=== PATIENT | female | born 1970 | race Caucasian/White ===

== ENCOUNTER 2016-10-09 08:00 | Emergency (ER) | payer BC ==
[2016-10-09] MEDS ORDERED: OXYCODONE-ACETAMINOPHEN 5-325 MG TABLET PO ONE (09:33)
--- NOTE | 2016-10-09 10:08 | ER Document Report ---
HPI - HPI Patient complains to provider of: FELL INJURING LOWER BACK AND NECK Onset: This morning Onset/Duration: Sudden Quality of pain: Throbbing Severity: Severe Pain Level: 5 Context: Patient states she slipped off the last step this morning on her way to work as it was wet. She landed more on her buttocks, but complains of lower back and neck pain. She has a history of neck surgery in the past. Associated Symptoms: None Exacerbated by: Movement Relieved by: Denies Similar symptoms previously: Yes Recently seen / treated by doctor: No - ROS ROS below otherwise negative: Yes Systems Reviewed and Negative: Yes All other systems reviewed and negative - CONSTITUTIONAL Constitutional: DENIES: Fever - EENT EENT: DENIES: Congestion - NEURO Neurology: DENIES: Headache - CARDIOVASCULAR Cardiovascular: DENIES: Chest pain - RESPIRATORY Respiratory: DENIES: Trouble Breathing - GASTROINTESTINAL Gastrointestinal: DENIES: Abdominal Pain - URINARY Urinary: DENIES: Dysuria - REPRODUCTIVE Reproductive: DENIES: : - MUSCULOSKELETAL Musculoskeletal: REPORTS: Back Pain, Neck Pain - DERM Skin Color: Normal Skin Problems: None Past Medical History - General Information source: Patient - Social History Smoking Status: Current Every Day Smoker Chew tobacco use (# tins/day): No Frequency of alcohol use: None Drug Abuse: None Lives with: Family Family History: Reviewed & Not Pertinent Patient has suicidal ideation: No Patient has homicidal ideation: No - Past Medical History Cardiac Medical History: Reports: Hx Hypertension Renal/ Medical History: Denies: Hx Peritoneal Dialysis Psychiatric Medical History: Reports: Hx Depression Past Surgical History: Reports: Hx Cholecystectomy, Hx Hysterectomy, Hx Orthopedic Surgery - c-spine:plates & screws, Hx Tonsillectomy - Immunizations Immunizations up to date: Yes Hx Diphtheria, Pertussis, Tetanus Vaccination: Yes Vertical Provider Document - CONSTITUTIONAL Agree With Documented VS: Yes Exam Limitations: No Limitations General Appearance: WD/WN, Mild Distress - INFECTION CONTROL TRAVEL OUTSIDE OF THE [place] IN LAST 30 DAYS: No - HEENT HEENT: Atraumatic, Normocephalic, PERRLA - NECK Notes: Mild tenderness cervical spine. Very tender cervical and trapezius muscles bilaterally. Pain with range of motion of neck. - RESPIRATORY Respiratory: Breath Sounds Normal, No Respiratory Distress O2 Sat by Pulse Oximetry: 99 - CARDIOVASCULAR Cardiovascular: Regular Rate, Regular Rhythm - GI/ABDOMEN Gastrointestinal: Abdomen Soft - MUSCULOSKELETAL/EXTREMETIES Musculoskeletal/Extremeties: Eccymosis - Right inner forearm - NEURO Level of Consciousness: Awake, Alert, Appropriate - DERM Integumentary: Warm, Dry Notes: Bruising noted to enter right forearm. Area tender to touch. Course - Vital Signs Vital signs: Temp Pulse Resp BP Pulse Ox 97.5 F 105 H 18 131/101 H 99 10/09/16 08:06 10/09/16 08:06 10/09/16 08:06 10/09/16 08:06 10/09/16 08:06 Discharge - Discharge Clinical Impression: Cervical strain, acute Qualifiers: Encounter type: initial encounter Qualified Code(s): S16.1XXA - Strain of muscle, fascia and tendon at neck level, initial encounter Low back pain Qualifiers: Chronicity: acute Back pain laterality: bilateral Sciatica presence: without sciatica Qualified Code(s): M54.5 - Low back pain Contusion of right forearm, initial encounter Qualifiers: Encounter type: initial encounter Qualified Code(s): S50.11XA - Contusion of right forearm, initial encounter Fall with injury Qualifiers: Encounter type: initial encounter Qualified Code(s): W19.XXXA - Unspecified fall, initial encounter Condition: Good Disposition: HOME, SELF-CARE Additional Instructions: X-rays were negative today. Take meds as prescribed Ice or heat packs to sore muscles ice packs to right inner forearm for bruising Follow-up with your doctor if not better by Saturday Return as needed Prescriptions: Methocarbamol [Robaxin 750 mg Tablet] 750 mg PO ASDIR PRN #40 tablet PRN Reason: Oxycodone HCl/Acetaminophen [Percocet 5-325 mg Tablet] 1 - 2 tab PO ASDIR PRN # 15 tablet PRN Reason: For Pain Forms: Return to Work
[2016-10-09 11:24] VITALS: BP 133/75
== END 2016-10-09 10:58 | disposition home or self-care (01) ==
LOC: ER 08:00
DX: S16.1XXA Strain of muscle, fascia and tendon at neck level, initial encounter (principal); S50.11XA Contusion of right forearm, initial encounter; M54.2 Cervicalgia; M54.5 Low back pain; W10.9XXA Fall (on) (from) unspecified stairs and steps, initial encounter; Y93.89 Activity, other specified; F17.200 Nicotine dependence, unspecified, uncomplicated; Z98.890 Other specified postprocedural states
CPT/HCPCS: 72050; 72110; 99283

== ENCOUNTER 2017-03-09 23:35 | Emergency (ER) | payer BC ==
[2017-03-10] MEDS ORDERED: OXYCODONE-ACETAMINOPHEN 5-325 MG TABLET PO ONE (00:04)
[2017-03-10] MEDS ORDERED: ATENOLOL 50 MG TABLET PO ONE (00:04)
[2017-03-10] MEDS ORDERED: PENICILLIN V POTASSIUM 500 MG TABLET PO ONE (00:04)
--- NOTE | 2017-03-10 00:06 | ER Document Report ---
ED Oral Problem - General Chief Complaint: Toothache Stated Complaint: POSSIBLE ABSCESS Time Seen by Provider: 03/09/17 23:56 Notes: Patient is a 46-year-old female that comes emergency department for chief complaint of right upper back dental pain. She states that she was evaluated by a dentist, placed on clindamycin, she has a follow-up appointment scheduled, she states she was told that she has a root canal planned, she states that the pain has worsened and she cannot sleep tonight. She denies swelling of the face , difficulty swallowing, fever, neck pain. Patient states she cannot take the clindamycin because it "makes her throat feel like it is swelling up". Patient was noted to be tachycardic in the 120s-140s upon arrival, on the monitor she is tachycardic at 118 on my examination. She denies chest pain, shortness of breath, dizziness, she denies the sensation of a racing heart. Patient is supposed to be taking atenolol 25 mg daily for this but she states she forgot for the past day or so. TRAVEL OUTSIDE OF THE [place] IN LAST 30 DAYS: No - Related Data Allergies/Adverse Reactions: clonazepam [From Klonopin] Allergy (Verified 03/09/17 23:41) tetracycline [Tetracycline] Allergy (Verified 03/09/17 23:41) Past Medical History - General Information source: Patient - Social History Smoking Status: Never Smoker Frequency of alcohol use: None Lives with: Family Family History: Reviewed & Not Pertinent Patient has suicidal ideation: No Patient has homicidal ideation: No - Past Medical History Cardiac Medical History: Reports: Hx Hypertension Renal/ Medical History: Denies: Hx Peritoneal Dialysis Psychiatric Medical History: Reports: Hx Depression Past Surgical History: Reports: Hx Cholecystectomy, Hx Hysterectomy, Hx Orthopedic Surgery - c-spine:plates & screws, Hx Tonsillectomy - Immunizations Immunizations up to date: Yes Hx Diphtheria, Pertussis, Tetanus Vaccination: Yes Review of Systems - Review of Systems Constitutional: No symptoms reported EENT: See HPI Cardiovascular: No symptoms reported Respiratory: No symptoms reported Gastrointestinal: No symptoms reported Genitourinary: No symptoms reported Female Genitourinary: No symptoms reported Musculoskeletal: No symptoms reported Skin: No symptoms reported Hematologic/Lymphatic: No symptoms reported Neurological/Psychological: No symptoms reported Physical Exam - Vital signs Vitals: Temp Pulse Resp BP Pulse Ox 97.9 F 144 H 18 141/103 H 98 03/09/17 23:41 03/09/17 23:41 03/09/17 23:41 03/09/17 23:41 03/09/17 23:41 Interpretation: Normal - General General appearance: Appears well, Alert - HEENT Head: Normocephalic, Atraumatic Eyes: Normal Conjunctiva: Normal Extraocular movements intact: Yes Eyelashes: Normal Pupils: PERRL Ears: Normal Sinus: Normal Nasal: Normal Mouth/Lips: Normal Mucous membranes: Normal Teeth diagram: 1 - Dental fracture without surrounding erythema, swelling, or abscess Pharynx: Normal Neck: Normal - Respiratory Respiratory status: No respiratory distress Chest status: Nontender Breath sounds: Normal Chest palpation: Normal - Cardiovascular Rhythm: Regular, Tachycardia - Marked tachycardia. No: Irregularly irregular, Extrasystoles Heart sounds: Normal auscultation, S1 appreciated, S2 appreciated Murmur: No - Abdominal Inspection: Normal Distension: No distension Bowel sounds: Normal Tenderness: Nontender Organomegaly: No organomegaly - Back Back: Normal, Nontender - Extremities General upper extremity: Normal inspection, Nontender, Normal color, Normal ROM , Normal temperature General lower extremity: Normal inspection, Nontender, Normal color, Normal ROM , Normal temperature, Normal weight bearing. No: Patria's sign - Neurological Neuro grossly intact: Yes Cognition: Normal Orientation: AAOx4 Keith Coma Scale Eye Opening: Spontaneous Keith Coma Scale Verbal: Oriented Keith Coma Scale Motor: Obeys Commands Keith Coma Scale Total: 15 Speech: Normal Motor strength normal: LUE, RUE, LLE, RLE Sensory: Normal - Psychological Associated symptoms: Normal affect, Normal mood - Skin Skin Temperature: Warm Skin Moisture: Dry Skin Color: Normal Course - Re-evaluation Re-evalutation: Patient actually is well-appearing, she does not appear to be in any significant pain, she has a dental fracture but no signs of abscess and no facial swelling. No lymphadenopathy or fever. Patient is very tachycardic, however after given her atenolol the tachycardia resolved. Patient denying any chest pain, shortness of breath, dizziness, or any symptoms other than tooth pain during her entire stay. Recommended she take her atenolol regularly as prescribed, she states she now understands the importance of this. Providing with antibiotics, she already has good dental follow-up, discussed return precautions, patient states understanding and agreement. - Vital Signs Vital signs: Temp Pulse Resp BP Pulse Ox 97.9 F 144 H 19 131/100 H 95 03/09/17 23:41 03/09/17 23:41 03/10/17 01:31 03/10/17 01:31 03/10/17 01:31 Discharge - Discharge Clinical Impression: Tooth pain, Sinus tachycardia Condition: Stable Disposition: HOME, SELF-CARE Additional Instructions: Please take the penicillin instead of the clindamycin to completion. Take the pain medicine given tonight if needed. Take the atenolol your prescribed every night, if not your heart rate is abnormally elevated. Follow-up closely with your dentist for repair. Return to emergency department for any concerning symptoms including swelling of the face, fever, etc. Prescriptions: Penicillin V Potassium [Penicillin Vk 500 mg Tablet] 500 mg PO BID #20 tablet Referrals: HAWA GARCIA MD [Primary Care Provider] - Follow up as needed
[2017-03-10 01:54] VITALS: BP 131/100
[2017-03-10] MEDS ORDERED: HYDROCODONE/ACETAMINOPHEN 5-325 MG 6 TAB/DSPK PO PRN (01:59)
--- NOTE | 2017-03-10 08:32 | EKG REPORT ---
SEVERITY:- OTHERWISE NORMAL ECG - SINUS TACHYCARDIA : Confirmed by: Jerrell Ramirez MD 10-Mar-2017 08:30:56
== END 2017-03-10 01:31 | disposition home or self-care (01) ==
LOC: ER 23:35
DX: K08.89 Other specified disorders of teeth and supporting structures (principal); R00.0 Tachycardia, unspecified
CPT/HCPCS: 93005; 93010; 99283

== ENCOUNTER 2017-06-18 07:40 | Emergency (ER) | payer BC ==
[2017-06-18] MEDS ORDERED: ASPIRIN 81 MG TABLET, CHEWABLE PO ONE (07:48)
[2017-06-18 08:50] LABS: ABSOLUTE BASOPHILS # (AUTO) 0.1 10^3/uL (0.0-0.2); ABSOLUTE EOSINOPHILS # (AUTO) 0.3 10^3/uL (0.0-0.6); ABSOLUTE LYMPHOCYTES (AUTO) 2.8 10^3/uL (0.5-4.7); ABSOLUTE MONOCYTES (AUTO) 0.6 10^3/uL (0.1-1.4); EOSINOPHILS % (AUTO) 2.7 % (0-6); HEMATOCRIT 41.4 % (36.0-47.0); LYMPHOCYTES % (AUTO) 28.5 % (13-45); MEAN CORPUSCULAR HEMOGLOBIN 28.8 pg (27.0-33.4); MEAN CORPUSCULAR HGB CONC 33.9 g/dL (32.0-36.0); MEAN CORPUSCULAR VOLUME 85 fl (80-97); MONOCYTES % (AUTO) 6.1 % (3-13); PLATELET COUNT 319 10^3/uL (150-450); RED BLOOD COUNT 4.87 10^6/uL (3.72-5.28); SEGMENTED NEUTROPHILS % (AUTO) 61.7 % (42-78); TOTAL CELLS COUNTED % (AUTO) 100 %; WHITE BLOOD COUNT 9.7 10^3/uL (4.0-10.5)
--- NOTE | 2017-06-18 08:50 | RADIOLOGY REPORT (SQ) ---
EXAM DESCRIPTION: CHEST PA/LAT COMPLETED DATE/TIME: 06/18/2017 8:16 am REASON FOR STUDY: sob COMPARISON: 02/17/2016 EXAM PARAMETERS: NUMBER OF VIEWS: two views TECHNIQUE: Digital Frontal and Lateral radiographic views of the chest acquired. RADIATION DOSE: NA LIMITATIONS: none FINDINGS: LUNGS AND PLEURA: No opacities, masses or pneumothorax. No pleural effusion. MEDIASTINUM AND HILAR STRUCTURES: No masses or contour abnormalities. HEART AND VASCULAR STRUCTURES: Heart normal size. No evidence for failure. BONES: No acute findings. HARDWARE: None in the chest. OTHER: No other significant finding. IMPRESSION: NO SIGNIFICANT RADIOGRAPHIC FINDING IN THE CHEST. TECHNICAL DOCUMENTATION: JOB ID: [id number] [employer]- All Rights Reserved
[2017-06-18 08:59] LABS: PROTHROMBIN TIME 12.8 SEC (11.4-15.4)
[2017-06-18 09:02] LABS: D-DIMER 1.38 ug/mL (0.00-0.50)
[2017-06-18 09:06] LABS: APPEARANCE,URINE CLOUDY; BILIRUBIN,URINE NEGATIVE (NEGATIVE); COLOR,URINE YELLOW; GLUCOSE, URINE NEGATIVE (NEGATIVE); KETONES,URINE NEGATIVE (NEGATIVE); LEUKOCYTE ESTERASE,URINE MODERATE (NEGATIVE); NITRITE,URINE NEGATIVE (NEGATIVE); PROTEIN,URINE 30 mg/dL (NEGATIVE); URINE SPECIFIC GRAVITY 1.028
[2017-06-18 09:12] LABS: ALANINE AMINOTRANSFERASE 19 U/L (9-52); ALBUMIN 4.2 g/dL (3.5-5.0); ALKALINE PHOSPHATASE 87 U/L (38-126); ANION GAP 11 (5-19); ASPARTATE AMINO TRANSFERASE 18 U/L (14-36); BILIRUBIN,DIRECT 0.3 mg/dL (0.0-0.4); BILIRUBIN,TOTAL 0.5 mg/dL (0.2-1.3); BLOOD UREA NITROGEN 12 mg/dL (7-20); CALCIUM 9.5 mg/dL (8.4-10.2); CARBON DIOXIDE 27 mmol/L (22-30); CHLORIDE 103 mmol/L (98-107); CREATINE KINASE 37 U/L (30-135); GLUCOSE 95 mg/dL (75-110); POTASSIUM 4.1 mmol/L (3.6-5.0); SODIUM 141.2 mmol/L (137-145); TOTAL PROTEIN 6.9 g/dL (6.3-8.2)
[2017-06-18 09:20] LABS: URINE AMPHETAMINES SCREEN NEGATIVE; URINE BARBITURATES SCREEN NEGATIVE; URINE BENZODIAZEPINES SCREEN NEGATIVE; URINE COCAINE SCREEN NEGATIVE; URINE MARIJUANA (THC) SCREEN NEGATIVE; URINE METHADONE SCREEN NEGATIVE; URINE PHENCYCLIDINE SCREEN NEGATIVE
--- NOTE | 2017-06-18 09:32 | EKG REPORT ---
SEVERITY:- BORDERLINE ECG - SINUS TACHYCARDIA BORDERLINE INFERIOR Q WAVES : Confirmed by: Hermelinda Diaz 18-Jun-2017 09:31:51
[2017-06-18 09:40] LABS: CREATINE KINASE MB 0.33 ng/mL (<4.55); TROPONIN I < 0.012 ng/mL
[2017-06-18 09:45] LABS: FREE T4 (FREE THYROXINE) 1.19 ng/dL (0.78-2.19)
--- NOTE | 2017-06-18 10:47 | RADIOLOGY REPORT (SQ) ---
EXAM DESCRIPTION: CTA CHEST COMPLETED DATE/TIME: 06/18/2017 10:25 am REASON FOR STUDY: elevated d dimer tachy COMPARISON: None. TECHNIQUE: CT scan of the chest performed using helical scanning technique with dynamic intravenous contrast injection. Images reviewed with lung, soft tissue and bone windows. Reconstructed coronal and sagittal MPR images reviewed. Additional 3 dimensional post-processing performed to develop Maximal Intensity Projection images (NV P). All images stored on PACS. All CT scanners at this facility use dose modulation, iterative reconstruction, and/or weight based d osing when appropriate to reduce radiation dose to as low as reasonably achievable (ALARA). [facility]: Dose Right [facility]: CareDose [facility]: Dose Right [facility]: Teradose 4D [facility]: CoScale CONTRAST TYPE AND DOSE: contrast/concentration: Isovue 370.00 mg/ml; Total Contrast Delivered: 75.0 ml; Total Saline Delivered: 85.0 ml 75 mL Isovue 370 intravenously Contrast bolus optimized for the pulmonary arteries. Not diagnostic for the aorta. RENAL FUNCTION: Creatinine 0.80. HCG negative. RADIATION DOSE: CT Rad equipment meets quality standard of care and radiation dose reduction techniq ues were employed. CTDIvol: 13.2 - 21.4 mGy. DLP: 841 mGy-cm. . LIMITATIONS: None. FINDINGS: LUNGS AND PLEURA: No masses, infiltrates, pneumothorax. No pleural effusions, calcificati ons. AORTA AND GREAT VESSELS: No aneurysm. Contrast bolus not optimized for the aorta. HEART: No pericardial effusion. No significant coronary artery calcifications. PULMONARY ARTERIES: No emboli visualized in the main pulmonary arteries or the segmental branches. HILAR AND MEDIASTINAL STRUCTURES: No identified masses or abnormal nodes. HARDWARE: None in the chest. UPPER ABDOMEN: Prominent spleen at the margin of filming. Correlate clinically. THYROID AND OTHER SOFT TISSUES: No masses. No adenopathy. BONES: No acute or significant finding. 3D MIPS: Confirm above findings. OTHER: No other significant finding. IMPRESSION: NORMAL CTA OF THE CHEST. NO PULMONARY EMBOLI. COMMENT: Quality ID # [id number]: Final reports with documentation of one or more dose reduction techniques (e.g., Automated exposure control, adjustment of the mA and/or kV according to patient size, use of iterative reconstruction technique) TECHNICAL DOCUMENTATION: JOB ID: [id number]- All Rights Reserved
[2017-06-18] MEDS ORDERED: NORMAL SALINE 1000 ML 1,000 ML IV ONE (10:58)
--- NOTE | 2017-06-18 11:20 | ER Document Report ---
ED General - General Chief Complaint: Palpitations Stated Complaint: CHEST PAIN Time Seen by Provider: 06/18/17 07:48 TRAVEL OUTSIDE OF THE [place] IN LAST 30 DAYS: No - HPI Patient complains to provider of: Palpitations Notes: Patient coming in for evaluation palpitations that started earlier this morning approximately around 2 AM. Patient states has had increased stress in her living situation. Patient has a significant history for anxiety on Lexapro and Ativan going to the patient for the symptoms. Patient states history of tachycardia palpitations in the past with no diagnosis given. Patient denies any changes to her medications denies travel denies shortness of breath denies fevers chills nausea vomiting diarrhea. Patient is resting currently upon my evaluation. Patient states most of her symptoms are felt in the center of her chest. - Related Data Allergies/Adverse Reactions: clonazepam [From Klonopin] Allergy (Verified 03/09/17 23:41) tetracycline [Tetracycline] Allergy (Verified 03/09/17 23:41) Past Medical History - Social History Smoking Status: Current Every Day Smoker Chew tobacco use (# tins/day): No Frequency of alcohol use: None Drug Abuse: None Family History: Reviewed & Not Pertinent Patient has suicidal ideation: No Patient has homicidal ideation: No - Past Medical History Cardiac Medical History: Reports: Hx Hypertension Renal/ Medical History: Denies: Hx Peritoneal Dialysis Psychiatric Medical History: Reports: Hx Depression Past Surgical History: Reports: Hx Cholecystectomy, Hx Hysterectomy, Hx Orthopedic Surgery - c-spine:plates & screws, Hx Tonsillectomy - Immunizations Immunizations up to date: Yes Hx Diphtheria, Pertussis, Tetanus Vaccination: Yes Review of Systems - Review of Systems Constitutional: No symptoms reported EENT: No symptoms reported Cardiovascular: Chest pain, Palpitations Respiratory: No symptoms reported Gastrointestinal: No symptoms reported Genitourinary: No symptoms reported Female Genitourinary: No symptoms reported Musculoskeletal: No symptoms reported Skin: No symptoms reported Hematologic/Lymphatic: No symptoms reported Neurological/Psychological: No symptoms reported -: Yes All other systems reviewed and negative Physical Exam - Vital signs Vitals: Temp Pulse Resp BP Pulse Ox 97.9 F 110 H 18 146/103 H 100 06/18/17 07:43 06/18/17 07:43 06/18/17 07:43 06/18/17 07:43 06/18/17 07:43 Interpretation: Normal - General General appearance: Appears well, Alert - HEENT Head: Normocephalic, Atraumatic Eyes: Normal Pupils: PERRL - Respiratory Respiratory status: No respiratory distress Chest status: Nontender Breath sounds: Normal Chest palpation: Normal - Cardiovascular Rhythm: Regular Heart sounds: Normal auscultation Murmur: No - Abdominal Inspection: Normal Distension: No distension Bowel sounds: Normal Tenderness: Nontender Organomegaly: No organomegaly - Back Back: Normal, Nontender - Extremities General upper extremity: Normal inspection, Nontender, Normal color, Normal ROM , Normal temperature General lower extremity: Normal inspection, Nontender, Normal color, Normal ROM , Normal temperature, Normal weight bearing. No: Patria's sign - Neurological Neuro grossly intact: Yes Cognition: Normal Orientation: AAOx4 Keith Coma Scale Eye Opening: Spontaneous [place] Coma Scale Verbal: Oriented [place] Coma Scale Motor: Obeys Commands Keith Coma Scale Total: 15 Speech: Normal Motor strength normal: LUE, RUE, LLE, RLE Sensory: Normal - Psychological Associated symptoms: Normal affect, Normal mood - Skin Skin Temperature: Warm Skin Moisture: Dry Skin Color: Normal Course - Re-evaluation Re-evalutation: 06/18/17 11:17 The patient has atypical chest pain as the patient's chest pain is not suggestive of pulmonary embolus, cardiac ischemia, aortic dissection, or other serious etiology. Given the extremely low risk of these diagnoses further testing and evaluation for these possibilities does not appear to be indicated at this time. The patient has been instructed to return if the symptoms worsen or change in any way. Will recommend patient follow-up with cardiology for an event monitor. Also recommend patient follow-up with your psychiatric provider is that this may be stress or anxiety induced tachycardia. - Vital Signs Vital signs: Temp Pulse Resp BP Pulse Ox 97.9 F 110 H 18 146/103 H 98 06/18/17 07:43 06/18/17 07:43 06/18/17 07:43 06/18/17 07:43 06/18/17 08:34 - Laboratory Result Diagrams: 06/18/17 08:25 06/18/17 08:25 Laboratory results interpreted by me: 06/18/17 06/18/17 08:25 08:25 D-Dimer 1.38 H Urine Protein 30 H Urine Urobilinogen 2.0 H Ur Leukocyte Esterase MODERATE H Discharge - Discharge Clinical Impression: Palpitations Condition: Good Instructions: Anxiety ([facility]), Chest Pain of Unclear Cause ([facility]), Palpitations ( Irregular or Rapid Heartrate) ([facility]) Additional Instructions: Your laboratory studies today did not reveal any critical etiology for your symptoms this morning. I highly recommend following up with a instrumentation manager provided for further evaluation for cardiac cause of your symptoms. Also recommend following up with her primary care physician and her psychiatrist. Continue your home medications as prescribed. Please drink plenty water to stay hydrated. Return to the ER symptoms worsen. Forms: Return to Work Referrals: HAWA GARCIA MD [Primary Care Provider] - Follow up as needed KATELYN JETER MD [ACTIVE STAFF] - Follow up as needed
[2017-06-18 12:13] VITALS: BP 134/98
== END 2017-06-18 12:23 | disposition home or self-care (01) ==
LOC: ER 07:40
DX: R00.2 Palpitations (principal); R07.89 Other chest pain; F17.200 Nicotine dependence, unspecified, uncomplicated; I10 Essential (primary) hypertension; Z90.49 Acquired absence of other specified parts of digestive tract; Z90.710 Acquired absence of both cervix and uterus
CPT/HCPCS: 93005; 99285; 96360; 36415; 84439; 82553; 82550; 84443; 84703; 85025; 85610; 80053; 81001; 84484; 80307; 85379; 71046; 71275; 93010; J7030

== ENCOUNTER 2018-03-24 04:46 | Emergency (ER) | payer BC ==
[2018-03-24] MEDS ORDERED: MORPHINE SULFATE 10 MG/ML INJ IM ONE (06:43)
[2018-03-24] MEDS ORDERED: IBUPROFEN 400 MG TABLET PO ONE (06:45)
--- NOTE | 2018-03-24 06:47 | ER Document Report ---
ED General - General Chief Complaint: Arm Problem Stated Complaint: ARM PAIN BOTH ARMS Time Seen by Provider: 03/24/18 06:22 TRAVEL OUTSIDE OF THE [place] IN LAST 30 DAYS: No - HPI Patient complains to provider of: Arm pain Onset: Other - 47-year-old female with a history of chronic musculoskeletal pain as well as restless leg anxiety and depression that presents for evaluation of bilateral forearm pain as well as right shoulder pain in the setting of having done heavy lifting for the last 4 days with some occasional paresthesias in the hands bilaterally. Denies any trauma, falls, lightheadedness, diaphoresis, fevers, chills IV drug abuse, urinary retention, focal numbness or weakness in the lower extremities. - Related Data Allergies/Adverse Reactions: clonazepam [From Klonopin] Allergy (Verified 03/09/17 23:41) tetracycline [Tetracycline] Allergy (Verified 03/09/17 23:41) Past Medical History - General Information source: Patient, Parent - Social History Smoking Status: Current Every Day Smoker Family History: Reviewed & Not Pertinent Patient has suicidal ideation: No Patient has homicidal ideation: No - Past Medical History Cardiac Medical History: Reports: Hx Hypertension Renal/ Medical History: Denies: Hx Peritoneal Dialysis Psychiatric Medical History: Reports: Hx Depression Past Surgical History: Reports: Hx Cholecystectomy, Hx Hysterectomy, Hx Orthopedic Surgery - c-spine:plates & screws, Hx Tonsillectomy - Immunizations Immunizations up to date: Yes Hx Diphtheria, Pertussis, Tetanus Vaccination: Yes Review of Systems - Review of Systems -: Yes All other systems reviewed and negative Physical Exam - Vital signs Vitals: Temp Pulse Resp BP Pulse Ox 98.6 F 80 15 133/85 H 97 03/24/18 04:57 03/24/18 04:57 03/24/18 04:57 03/24/18 04:57 03/24/18 04:57 - General General appearance: Appears well In distress: None - HEENT Head: Normocephalic Eyes: Normal Conjunctiva: Normal Cornea: Normal Extraocular movements intact: Yes Eyelashes: Normal Pupils: PERRL - Respiratory Respiratory status: No respiratory distress Chest status: Nontender Breath sounds: Normal Chest palpation: Normal - Cardiovascular Rhythm: Regular Heart sounds: Normal auscultation Murmur: No Friction rub: No Kisha's crunch: No - Abdominal Inspection: Normal Distension: No distension Tenderness: Nontender Organomegaly: No organomegaly - Back Back: Normal - Extremities General upper extremity: Normal inspection, Normal ROM, Normal strength, Other - Tenderness to palpation along the volar and dorsal aspect of the forearm, intact range of motion at the shoulder, intact range of motion at the elbow, intact range of motion at the wrist Strong palpable radial pulse bilaterally Brisk capillary refill in all 5 digits bilaterally Normal sensation in the ulnar median and radial distribution Negative Tinel sign General lower extremity: Normal inspection, Nontender, Normal ROM, Normal strength Course - Re-evaluation Re-evalutation: 03/24/18 08:15 This 47-year-old female presents for symptoms consistent with likely underlying musculoskeletal arm pain in the setting of having done heavy lifting and moving over the last few days. She does endorse some paresthesias however in the hand which sound like potentially episodes of carpal tunnel syndrome as a result of her heavy lifting. She does however have intact strength in the bilateral uppers, 5 out of 5 in the flexors and extensors. She has no midline tenderness in the cervical thoracic or lumbar spine She has no diminished reflexes, no urinary retention no inability to ambulate no change in sensation in the uppers or lowers suggestive of a compressive cord lesion. We will attempt analgesia with IM morphine in the emergency department as well as a prescription for tizanidine a muscle relaxer at home and the use of NSAIDs as directed. - Vital Signs Vital signs: Temp Pulse Resp BP Pulse Ox 98.8 F 74 18 131/84 H 95 03/24/18 06:54 03/24/18 06:54 03/24/18 06:54 03/24/18 06:54 03/24/18 06:54 Discharge - Discharge Clinical Impression: Muscle pain Arm pain, musculoskeletal Qualifiers: Laterality: unspecified laterality Qualified Code(s): M79.603 - Pain in arm, unspecified Condition: Good Disposition: HOME, SELF-CARE Instructions: Carpal Tunnel Syndrome ([facility]), Myalagia (Muscle Pain) ([facility]) Additional Instructions: Your seen today in the emergency department for your muscle pain. It is possible that you do have some element of carpal tunnel as well. You should use ibuprofen 400 mg every 6-8 hours for the next 3 days. You should walk at least 30 minutes/day. You should avoid recurrent lifting, fine movements with your hands like knitting or typing for a few days. Follow-up with the orthopedist provided to you, keep your previous appointment with your neurologist. Use the medication prescribed you only as directed. Prescriptions: Tizanidine HCl 4 mg PO Q12H PRN #10 tablet PRN Reason: Muscle Spasms Forms: Elevated Blood Pressure, Return to Work Referrals: WILFREDO LOUISE MD [ACTIVE STAFF] - Follow up as needed
--- NOTE | 2018-03-24 06:49 | EKG REPORT ---
SEVERITY:- NORMAL ECG - SINUS RHYTHM : Confirmed by: Hermelinda Diaz 24-Mar-2018 06:49:05
[2018-03-24 06:54] VITALS: BP 131/84
== END 2018-03-24 06:56 | disposition home or self-care (01) ==
LOC: ER 04:46
DX: M79.18 Myalgia, other site (principal); M25.511 Pain in right shoulder; R20.2 Paresthesia of skin; X50.0XXA Overexertion from strenuous movement or load, initial encounter; Z88.8 Allergy status to other drugs, medicaments and biological substances; Z88.1 Allergy status to other antibiotic agents; F17.200 Nicotine dependence, unspecified, uncomplicated; I10 Essential (primary) hypertension
CPT/HCPCS: 93005; 99283; 96372; 93010; J3490; J2270

== ENCOUNTER 2019-05-01 16:50 | Observation (INO) | payer BC, MEDICAID ==
[2019-05-01] MEDS ORDERED: KETOROLAC TROMETHAMINE INJ/PF 30 MG/1 ML SDV IM ONE (18:01)
--- NOTE | 2019-05-01 18:04 | ER Document Report ---
ED Medical Screen (RME) - General Chief Complaint: Chest Pain Stated Complaint: CHEST PAIN, LEFT ARM PAIN Time Seen by Provider: 05/01/19 17:54 Primary Care Provider: MALACHI PEREZ MD [Primary Care Provider] - Follow up as needed Notes: Patient is a 49-year-old female who presents to the emergency department with a chief complaint of chest pain. Patient reports for about a week and a half she has had left chest wall pain mainly the left breast. Patient reports she is on atenolol for rapid heartbeat and has been for years. Patient reports the pain to the left chest is worse with walking, movement and bending over. Patient reports she did smoke 1 pack/day for the past 25 years but quit last week because she was scared to the chest pain. Patient denies fever, cough. Patient reports initially she thought this was acid reflux and did take some baking soda without relief. TRAVEL OUTSIDE OF THE [place] IN LAST 30 DAYS: No - Related Data Allergies/Adverse Reactions: clonazepam [From Klonopin] Allergy (Verified 05/01/19 17:54) tetracycline [Tetracycline] Allergy (Verified 05/01/19 17:54) Home Medications: atenolol Past Medical History - Social History Chew tobacco use (# tins/day): No Frequency of alcohol use: None Drug Abuse: None - Past Medical History Cardiac Medical History: Reports: Hx Hypertension Renal/ Medical History: Denies: Hx Peritoneal Dialysis Psychiatric Medical History: Reports: Hx Depression Past Surgical History: Reports: Hx Cholecystectomy, Hx Hysterectomy, Hx Orthopedic Surgery - c-spine:plates & screws, Hx Tonsillectomy - Immunizations Immunizations up to date: Yes Hx Diphtheria, Pertussis, Tetanus Vaccination: Yes Physical Exam - Vital signs Vitals: Temp Pulse Resp BP Pulse Ox 98.4 F 81 18 133/84 H 99 05/01/19 17:00 05/01/19 17:00 05/01/19 17:00 05/01/19 17:00 05/01/19 17:00 Course - Re-evaluation Re-evalutation: 05/01/19 18:04 I have greeted and performed a rapid initial assessment of this patient. A comprehensive ED assessment and evaluation of the patient, analysis of test results and completion of the medical decision making process will be conducted by additional ED providers. - Vital Signs Vital signs: Temp Pulse Resp BP Pulse Ox 98.4 F 81 18 133/84 H 99 05/01/19 17:00 05/01/19 17:00 05/01/19 17:00 05/01/19 17:00 05/01/19 17:00 Doctor's Discharge - Discharge Referrals: MALACHI PEREZ MD [Primary Care Provider] - Follow up as needed
[2019-05-01 18:49] LABS: ABSOLUTE BASOPHILS # (AUTO) 0.1 10^3/uL (0.0-0.2); ABSOLUTE EOSINOPHILS # (AUTO) 0.2 10^3/uL (0.0-0.6); ABSOLUTE LYMPHOCYTES (AUTO) 3.9 10^3/uL (0.5-4.7); ABSOLUTE NEUT (AUTO) 7.1 10^3/uL (1.7-8.2); BASOPHILS % (AUTO) 0.8 % (0-2); EOSINOPHILS % (AUTO) 1.7 % (0-6); HEMATOCRIT 39.7 % (36.0-47.0); HEMOGLOBIN 13.9 g/dL (12.0-15.5); LYMPHOCYTES % (AUTO) 31.5 % (13-45); MEAN CORPUSCULAR VOLUME 86 fl (80-97); PLATELET COUNT 347 10^3/uL (150-450); RED BLOOD COUNT 4.63 10^6/uL (3.72-5.28); RED CELL DISTRIBUTION WIDTH 13.8 % (11.5-14.0); TOTAL CELLS COUNTED % (AUTO) 100 %; WHITE BLOOD COUNT 12.2 10^3/uL (4.0-10.5)
--- NOTE | 2019-05-01 18:59 | RADIOLOGY REPORT (SQ) ---
EXAM DESCRIPTION: CHEST 2 VIEWS COMPLETED DATE/TIME: 05/01/2019 6:41 pm REASON FOR STUDY: chest pain COMPARISON: CT angio chest 06/18/2017 Two-view chest 06/18/2017 EXAM PARAMETERS: NUMBER OF VIEWS: two views TECHNIQUE: Digital Frontal and Lateral radiographic views of the chest acquired. RADIATION DOSE: NA LIMITATIONS: none FINDINGS: LUNGS AND PLEURA: No opacities, masses or pneumothorax. No pleural effusion. MEDIASTINUM AND HILAR STRUCTURES: No masses or contour abnormalities. HEART AND VASCULAR STRUCTURES: Heart normal size. No evidence for failure. BONES: No acute findings. HARDWARE: None in the chest. OTHER: No other significant finding. IMPRESSION: NO ACUTE RADIOGRAPHIC FINDING IN THE CHEST. TECHNICAL DOCUMENTATION: JOB ID: [id number] [employer]- All Rights Reserved Reading location - IP/workstation name: [email or web address]
[2019-05-01 19:12] LABS: ALBUMIN 4.2 g/dL (3.5-5.0); ALKALINE PHOSPHATASE 79 U/L (38-126); ANION GAP 11 (5-19); ASPARTATE AMINO TRANSFERASE 16 U/L (14-36); BILIRUBIN,DIRECT 0.1 mg/dL (0.0-0.4); BILIRUBIN,TOTAL 0.4 mg/dL (0.2-1.3); BLOOD UREA NITROGEN 12 mg/dL (7-20); CALCIUM 9.5 mg/dL (8.4-10.2); CARBON DIOXIDE 26 mmol/L (22-30); CHLORIDE 102 mmol/L (98-107); GLUCOSE 86 mg/dL (75-110); POTASSIUM 4.3 mmol/L (3.6-5.0); TOTAL PROTEIN 7.1 g/dL (6.3-8.2)
[2019-05-01] MEDS ORDERED: KETOROLAC TROMETHAMINE INJ/PF 30 MG/1 ML SDV ONE (20:43)
[2019-05-01] MEDS ORDERED: ASPIRIN 81 MG TABLET, CHEWABLE PO ONE (20:44)
[2019-05-01] MEDS ORDERED: NITROGLYCERIN 0.4 MG/TAB 25 TAB/BOTTLE SL ONE (20:45)
--- NOTE | 2019-05-01 20:51 | ER Document Report ---
ED General - General Chief Complaint: Chest Pain Stated Complaint: CHEST PAIN, LEFT ARM PAIN Time Seen by Provider: 05/01/19 17:54 Primary Care Provider: MALACHI PEREZ MD [Primary Care Provider] - Follow up as needed TRAVEL OUTSIDE OF THE [place] IN LAST 30 DAYS: No - HPI Notes: Patient is a 49-year-old female who presents emergency department for evaluation of chest pain. She states that over the last week and a half she is been having intermittent chest tightness. She points to her left upper chest. She states she has associated left arm heaviness. This pain is predictably brought about by any sort of exertion. She states if she rests and takes deep breaths the pain goes away. It lasts anywhere from 5 to 15 minutes. Prior to that she never had pain similar to this. She denies any associated shortness of breath, nausea, diaphoresis, near syncope. At first he thought it could be acid reflux, tried treatment for this without any significant relief. She currently states she has pain in her chest that she rates a 3 out of 10. It only started a few minutes before we started talking. - Related Data Allergies/Adverse Reactions: clonazepam [From Klonopin] Allergy (Verified 05/01/19 17:54) tetracycline [Tetracycline] Allergy (Verified 05/01/19 17:54) Home Medications: atenolol, Ativan Past Medical History - General Information source: Patient - Social History Smoking Status: Former Smoker - Quit smoking on 04/24/2019 Chew tobacco use (# tins/day): No Frequency of alcohol use: None Drug Abuse: None Family History: Reviewed & Not Pertinent Patient has suicidal ideation: No Patient has homicidal ideation: No - Past Medical History Cardiac Medical History: Reports: Hx Hypertension, Other - Palpitations Renal/ Medical History: Denies: Hx Peritoneal Dialysis Psychiatric Medical History: Reports: Hx Anxiety, Hx Depression Past Surgical History: Reports: Hx Cholecystectomy, Hx Hysterectomy, Hx Orthopedic Surgery - c-spine:plates & screws, Hx Tonsillectomy - Immunizations Immunizations up to date: Yes Hx Diphtheria, Pertussis, Tetanus Vaccination: Yes Review of Systems - Review of Systems Constitutional: No symptoms reported EENT: No symptoms reported Cardiovascular: See HPI Respiratory: No symptoms reported Gastrointestinal: No symptoms reported Genitourinary: No symptoms reported Musculoskeletal: No symptoms reported Skin: No symptoms reported Neurological/Psychological: No symptoms reported Physical Exam - Vital signs Vitals: Temp Pulse Resp BP Pulse Ox 98.4 F 81 18 133/84 H 99 05/01/19 17:00 05/01/19 17:00 05/01/19 17:00 05/01/19 17:00 05/01/19 17:00 - Notes Notes: Vital signs reviewed, please refer to chart. Head is normocephalic, atraumatic. Pupils equal round, reactive to light. Neck is supple without meningismus. Heart is regular rate and rhythm. Lungs are clear to auscultation bilaterally. Abdomen is soft, nontender, normoactive bowel sounds throughout. Extremities without cyanosis, clubbing. Posterior calves are nontender. Peripheral pulses are equal. Skin is warm and dry. Patient is awake, alert, neurological exam is nonfocal. Course - Re-evaluation Re-evalutation: 05/01/19 20:51 Patient presents the emergency department for evaluation. She was initially seen through triage and had laboratory investigations ordered. Upon signing into the chart, it was noted that the patient's troponin was indeterminately elevated. I immediately went in to see the patient. I am concerned that her chest pain does not fact sound anginal in nature. She was given aspirin, sublingual nitroglycerin. Her EKG failed to reveal any acute ST elevation. As she is having chest pain at this time, repeat EKG is ordered. Repeat troponin is ordered. She is placed on a monitor, we will continue to monitor. 05/01/19 21:57 Patient was given 1 sublingual nitroglycerin and her pain went from a 3 out of 10-0. She stayed there. Nitroglycerin paste was placed. She tolerated the aspirin well. Patient is already on a beta-giana. Currently her vitals are within normal limits. Will contact internal medicine for admission. 05/01/19 22:[address] Alvarado. He asked that I make the patient know that there are no beds available in the hospital, and she will likely be in the emergency department, and awaiting stress testing for a few days. I did notify the patient of this, she was still amenable to staying in the hospital. Patient was administered Ambien as per her request, as well as Lovenox at 1 mg/kg. We will admit the patient for further care. - Vital Signs Vital signs: Temp Pulse Resp BP Pulse Ox 98.4 F 81 15 111/78 98 05/01/19 17:00 05/01/19 17:00 05/01/19 22:01 05/01/19 22:01 05/01/19 22:01 - Laboratory Result Diagrams: 05/01/19 18:25 05/01/19 18:25 Laboratory results interpreted by me: 05/01/19 18:25 WBC 12.2 H - Diagnostic Test Radiology reviewed: Reports reviewed Radiology results interpreted by me: 05/01/19 22:38 Chest X-Ray 05/01/19 18:01 IMPRESSION: NO ACUTE RADIOGRAPHIC FINDING IN THE CHEST. - EKG Interpretation by Me Additional EKG results interpreted by me: 05/01/19 22:39 Initial EKG revealed a sinus rhythm with a rate of 78 bpm. Normal axis and intervals. No acute ST changes concerning for acute infarction. Repeat EKG showed a rate of 70 and no significant changes. Discharge - Discharge Clinical Impression: Unstable angina Condition: Stable Disposition: ADMITTED INPATIENT Admitting Provider: Christiano (Hospitalist) Unit Admitted: Telemetry Referrals: MALACHI PEREZ MD [Primary Care Provider] - Follow up as needed
[2019-05-01] MEDS ORDERED: ACETAMINOPHEN 325 MG TABLET PO ONE (21:49)
[2019-05-01] MEDS ORDERED: NITROGLYCERIN 2% OINTMENT 1 GM PACKET TP ONE (21:56)
--- NOTE | 2019-05-01 22:33 | PDOC H&P ---
History of Present Illness Admission Date/PCP: 05/01/2019 22:32 MALACHI PREEZ MD Patient complains of: Chest pain History of Present Illness: CEDRICK ANDINO is a 49 year old female who presented to the emergency room with a 10-day history of chest pain. Patient admits having intermittent 5 to 15-minute episodes of moderate to severe chest heaviness/tightness in the substernal and left upper chest with radiation of a heaviness sensation down her left arm. The episodes occur on exertion and are relieved by rest. The episodes have been increasing in frequency and in the intensity since their onset about 10 days ago. She denies other associated or accompanying signs and symptoms. She thought that her symptoms may be due to esophageal reflux and check an antiacid preparation of baking soda without improvement thus prompting her emergency room visit. She denies previous similar episodes. She has not identified any additional aggravating or ameliorating factors for her chest pain. In the emergency room she was found to have indeterminate cardiac enzyme assays and an EKG that showed no evidence of acute myocardial ischemia or injury. She was subsequently admitted to the hospital for further evaluation and treatment on an outpatient bed assignment basis. Past Medical History Cardiac Medical History: Reports: Hypertension, Other - Palpitations Denies: Atrial Fibrillation, Congestive Heart Failure, Coronary Artery Disease, DVT, Myocardial Infarction, Hyperlipidema, Pulmonary Embolism Pulmonary Medical History: Denies: Asthma, Chronic Obstructive Pulmonary Disease (COPD) EENT Medical History: Denies: Cataracts, Ears - Hearing aids Neurological Medical History: Denies: Hemorrhagic CVA, Ischemic CVA, Seizures Endocrine Medical History: Reports: Obesity Denies: Diabetes Mellitus Type 1, Diabetes Mellitus Type 2, Hyperthyroidism, Hypothyroidism Renal/ Medical History: Denies: Chronic Kidney Disease, Nephrolithiasis Malignancy Medical History: Reports: None GI Medical History: Denies: Cirrhosis, Hepatitis Musculoskeltal Medical History: Denies: Arthritis, Gout Skin Medical History: Denies: Eczema, Psoriasis Psychiatric Medical History: Reports: Depression, Tobacco Dependency Denies: Alcohol Dependency, Substance Abuse Traumatic Medical History: Reports: None Hematology: Denies: Anemia, Bleeding Tendencies Infectious Medical History: Reports: None Past Surgical History Past Surgical History: Reports: Cholecystectomy, Hysterectomy, Orthopedic Surgery - c-spine:plates & screws, Tonsillectomy Social History Information Source: Patient Lives with: Family Smoking Status: Former Smoker - Quit smoking on 04/24/2019 Electronic Cigarette use?: No Frequency of Alcohol Use: None Hx Recreational Drug Use: No Drugs: None Hx Prescription Drug Abuse: No - Advance Directive Resuscitation Status: Full Code Surrogate healthcare decision maker:: Dread Andino Family History Family History: CAD, Hypertension. denies: DM, Malignancy Parental Family History Reviewed: Yes Children Family History Reviewed: No Sibling(s) Family History Reviewed.: Yes Medication/Allergy Home Medications: Tizanidine HCl 4 mg PO Q12H PRN #10 tablet 03/24/18 Allergies/Adverse Reactions: clonazepam [From Klonopin] Allergy (Verified 05/01/19 17:54) tetracycline [Tetracycline] Allergy (Verified 05/01/19 17:54) Review of Systems Constitutional: ABSENT: chills, fever(s) Eyes: ABSENT: visual disturbances, other - Eye pain Ears: ABSENT: hearing changes, other - Ear pain Nose, Mouth, and Throat: ABSENT: mouth pain, sore throat Cardiovascular: PRESENT: as per HPI, chest pain. ABSENT: dyspnea on exertion, edema, orthropnea, palpitations Respiratory: ABSENT: cough, dyspnea Gastrointestinal: ABSENT: abdominal pain, constipation, diarrhea, nausea, vomiting Genitourinary: ABSENT: dysuria, hematuria Musculoskeletal: ABSENT: back pain, joint swelling, muscle weakness Integumentary: ABSENT: pruritus, rash Neurological: ABSENT: confusion, convulsions, focal weakness, memory loss, syncope Psychiatric: ABSENT: anxiety, depression Endocrine: ABSENT: cold intolerance, heat intolerance Hematologic/Lymphatic: ABSENT: easy bleeding, easy bruising Allergic/Immunologic: ABSENT: seasonal rhinorrhea Physical Exam Vital Signs: Temp Pulse Resp BP Pulse Ox 98.4 F 81 15 111/78 98 05/01/19 17:00 05/01/19 17:00 05/01/19 22:01 05/01/19 22:01 05/01/19 22:01 Intake & Output 04/29/19 04/30/19 05/01/19 23:59 23:59 23:59 Weight 90.718 kg General appearance: PRESENT: no acute distress, cooperative, obese Head exam: PRESENT: atraumatic, normocephalic Eye exam: PRESENT: conjunctiva pink. ABSENT: conjunctival injection, scleral icterus Ear exam: PRESENT: normal external ear exam. ABSENT: bleeding, drainage Mouth exam: PRESENT: dry mucosa, neck supple Neck exam: ABSENT: thyromegaly, tracheal deviation Respiratory exam: PRESENT: clear to auscultation kristy, symmetrical, unlabored Cardiovascular exam: PRESENT: RRR. ABSENT: clicks, gallop, rubs Pulses: PRESENT: normal radial pulses, normal dorsalis pedis pul Vascular exam: PRESENT: normal capillary refill. ABSENT: pallor GI/Abdominal exam: PRESENT: normal bowel sounds, soft Rectal exam: PRESENT: deferred Extremities exam: ABSENT: joint swelling, pedal edema Musculoskeletal exam: ABSENT: deformity, dislocation Neurological exam: PRESENT: alert, oriented to person, oriented to place, oriented to time, oriented to situation, CN II-XII grossly intact, motor sensory deficit Psychiatric exam: PRESENT: appropriate affect, normal mood Skin exam: PRESENT: dry, intact, warm. ABSENT: jaundice, rash, urticaria Results Laboratory Results: 05/01/19 18:25 05/01/19 18:25 05/01/19 05/01/19 18:25 18:25 WBC 12.2 H RBC 4.63 Hgb 13.9 Hct 39.7 MCV 86 MCH 30.0 MCHC 35.0 RDW 13.8 Plt Count 347 Seg Neutrophils % 58.0 Sodium 138.6 Potassium 4.3 Chloride 102 Carbon Dioxide 26 Anion Gap 11 BUN 12 Creatinine 0.73 Est GFR ( Amer) > 60 Glucose 86 Calcium 9.5 Total Bilirubin 0.4 AST 16 Alkaline Phosphatase 79 Total Protein 7.1 Albumin 4.2 05/01/19 05/01/19 18:25 20:55 Troponin I 0.095 0.111 Impressions: Chest X-Ray 05/01/19 18:01 IMPRESSION: NO ACUTE RADIOGRAPHIC FINDING IN THE CHEST. Assessment and Plan - Diagnosis (1) Chest pain Qualifiers: Chest pain type: unspecified Qualified Code(s): R07.9 - Chest pain, unspecified Is this a current diagnosis for this admission?: Yes (2) Obesity (BMI 30-39.9) Is this a current diagnosis for this admission?: Yes (3) Hypertension Qualifiers: Hypertension type: essential hypertension Qualified Code(s): I10 - Essential (primary) hypertension Is this a current diagnosis for this admission?: Yes (4) Heart palpitations Is this a current diagnosis for this admission?: Yes - Plan Summary Summary: Patient is admitted to observation status with a telemetry bed. She will receive routine supportive and symptomatic cares. Serial cardiac enzymes will be obtained and if no evidence of myocardial injury is noted a Cardiolite cardiac stress test will be arranged. The patient's chest pain will be treated with nitroglycerin 1 g topically changed every 6 hours and breakthrough pain will be treated with morphine sulfate 2 to 4 mg IV every 2 hours on an as-needed basis using a sliding scale for pain. Further evaluation and/or treatment will be provided as appropriate. Patient will be continued on her usual medications for her chronic medical problems as appropriate. - Time Time Spent with patient: 25-34 minutes Medications reviewed and adjusted accordingly: Yes Anticipated discharge: Home Within: within 72 hours - Inpatient Certification Based on my medical assessment, after consideration of the patient's comorbidities, presenting symptoms, or acuity I expect that the services needed warrant INPATIENT care.: No I certify that my determination is in accordance with my understanding of Medicare's requirements for reasonable and necessary INPATIENT services [42 CFR 412.3e].: No Medical Necessity: Need Close Monitoring Due to Risk of Patient Decompensation, Need For Continuous Telemetry Monitoring, Risk of Complication if Not Cared For in Hospital, Risk of Diagnosis Which Will Require Inpatient Eval/Care/Monitoring
[2019-05-01] MEDS ORDERED: ENOXAPARIN SODIUM INJ 100 MG/1 ML DISP.SYRIN SUBCUT ONE (22:34)
[2019-05-01] MEDS ORDERED: ZOLPIDEM TARTRATE 5 MG TABLET PO ONE (22:34)
[2019-05-01] MEDS ORDERED: PROMETHAZINE HCL INJ 25 MG/1 ML VIAL IV PRN (22:48)
[2019-05-01] MEDS ORDERED: ZOLPIDEM TARTRATE 5 MG TABLET PO PRN (22:48)
[2019-05-01] MEDS ORDERED: MAG HYDROX/AL HYDROX/SIMETH SUSP 30 ML UDCUP PO PRN (22:48)
[2019-05-01] MEDS ORDERED: MAGNESIUM HYDROXIDE SUSP 30 ML UDCUP PO PRN (22:48)
[2019-05-01] MEDS ORDERED: LEVALBUTEROL HCL NEB 0.63 MG/3 ML AMPUL NEB PRN (22:48)
[2019-05-01] MEDS ORDERED: ENOXAPARIN SODIUM INJ 100 MG/1 ML DISP.SYRIN SUBCUT SCH (23:00)
[2019-05-01] MEDS: FAMOTIDINE 20 MG TABLET PO SCH (23:45)
[2019-05-02 03:06] LABS: HEMATOCRIT 38.8 % (36.0-47.0); HEMOGLOBIN 13.5 g/dL (12.0-15.5); MEAN CORPUSCULAR HEMOGLOBIN 30.1 pg (27.0-33.4); MEAN CORPUSCULAR HGB CONC 34.8 g/dL (32.0-36.0); MEAN CORPUSCULAR VOLUME 87 fl (80-97); PLATELET COUNT 300 10^3/uL (150-450); RED BLOOD COUNT 4.48 10^6/uL (3.72-5.28); RED CELL DISTRIBUTION WIDTH 13.8 % (11.5-14.0); WHITE BLOOD COUNT 10.6 10^3/uL (4.0-10.5)
[2019-05-02 03:23] LABS: ANION GAP 9 (5-19); BLOOD UREA NITROGEN 12 mg/dL (7-20); CALCIUM 8.8 mg/dL (8.4-10.2); CARBON DIOXIDE 26 mmol/L (22-30); CHLORIDE 103 mmol/L (98-107); CHOLESTEROL 217.03 mg/dL (0-200); CREATINE KINASE 44 U/L (30-135); GLUCOSE 117 mg/dL (75-110)
[2019-05-02 03:33] LABS: DIRECT LDL 127 mg/dL (<100); TRIGLYCERIDES 665 mg/dL (<150)
[2019-05-02 03:34] LABS: CREATINE KINASE MB 1.62 ng/mL (<4.55)
[2019-05-02 03:40] LABS: TROPONIN I 0.163 ng/mL
[2019-05-02] MEDS ORDERED: INFLUENZA QUAD (6MOS+) 2019-20 VAC 0.5 ML SYR IM ONE (09:04)
[2019-05-02] MEDS: FAMOTIDINE 20 MG TABLET PO SCH (09:32)
[2019-05-02] MEDS ORDERED: ASPIRIN 81 MG TABLET, CHEWABLE PO SCH (10:00)
[2019-05-02] MEDS ORDERED: DOCUSATE SODIUM 100 MG CAPSULE PO SCH (10:00)
[2019-05-02] MEDS ORDERED: ENOXAPARIN SODIUM INJ 100 MG/1 ML DISP.SYRIN SUBCUT SCH (10:00)
[2019-05-02 10:11] LABS: CREATINE KINASE MB 1.33 ng/mL (<4.55); TROPONIN I 0.214 ng/mL
[2019-05-02] MEDS ORDERED: TRAMADOL HCL 50 MG TABLET PO PRN (11:39)
[2019-05-02] MEDS ORDERED: LORAZEPAM 1 MG TABLET PO PRN (11:39)
--- NOTE | 2019-05-02 11:46 | EKG REPORT ---
SEVERITY:- NORMAL ECG - SINUS RHYTHM : Confirmed by: Meghna Figueroa MD 02-May-2019 11:46:14
--- NOTE | 2019-05-02 11:46 | EKG REPORT ---
SEVERITY:- NORMAL ECG - SINUS RHYTHM : Confirmed by: Meghna Figueroa MD 02-May-2019 11:46:10
--- NOTE | 2019-05-02 11:47 | EKG REPORT ---
SEVERITY:- NORMAL ECG - SINUS RHYTHM : Confirmed by: Meghna Figueroa MD 02-May-2019 11:46:33
[2019-05-02 12:27] VITALS: BP 130/79
[2019-05-02] MEDS ORDERED: DULOXETINE HCL 30 MG CAPSULE.DR PO SCH (12:30)
--- NOTE | 2019-05-02 12:47 | PDOC TRANSFER SUMMARY ---
General Admission Date/PCP: 05/01/19 23:17 MALACHI PEREZ MD Admission Date: 05/01/19 Transfer Date: 05/02/19 Accepting Facility: Other (Comments) - [facility] Resuscitation Status: Full Code - Transfer Diagnosis (1) Unstable angina Is this a current diagnosis for this admission?: Yes (2) Obesity (BMI 30-39.9) Is this a current diagnosis for this admission?: Yes (3) Tobacco abuse Is this a current diagnosis for this admission?: Yes (4) Hyperlipidemia Is this a current diagnosis for this admission?: Yes - Transfer Medications Home Medications: Atenolol [Tenormin 50 mg Tablet] 50 mg PO DAILY 05/02/19 Duloxetine HCl [Cymbalta 30 mg Capsule.dr] 90 mg PO DAILY 05/02/19 Lorazepam [Ativan 1 mg Tablet] 1 mg PO Q12HP PRN 05/02/19 Tramadol HCl [Ultram 50 mg Tablet] 50 mg PO Q12HP PRN 05/02/19 Transfer Medications: Current Medications Al Hydrox/Mg Hydrox/Simethicone (Maalox Plus Susp 30 Udcup) 30 ml PO Q6HP PRN PRN Reason: HEARTBURN Stop: 05/31/19 22:47 Aspirin (Aspirin 81 Mg Chewable Tablet) 81 mg PO DAILY [facility] Stop: 06/01/19 09:59 Last Admin: 05/02/19 09:32 Dose: 81 mg Documented by: Atorvastatin Calcium (Lipitor 40 Mg Tablet) 40 mg PO QHS ALICE Stop: 06/01/19 21:59 Docusate Sodium (Colace 100 Mg Capsule) 100 mg PO BID ALICE Stop: 06/01/19 09:59 Last Admin: 05/02/19 09:32 Dose: 100 mg Documented by: Duloxetine HCl (Cymbalta 30 Mg Capsule.Dr) 90 mg PO DAILY ALICE Stop: 06/01/19 12:29 Last Admin: 05/02/19 12:21 Dose: 90 mg Documented by: Enoxaparin Sodium (Lovenox Inj 100 Mg/1 Ml Disp.Syrin) 90 mg SUBCUT Q12 ALICE Stop: 06/01/19 09:59 Last Admin: 05/02/19 09:32 Dose: 90 mg Documented by: Famotidine (Pepcid 20 Mg Tablet) 20 mg PO Q12 ALICE Stop: 05/31/19 22:59 Last Admin: 05/02/19 09:32 Dose: 20 mg Documented by: Levalbuterol HCl (Xopenex Neb 0.63 Mg/3 Ml Ampul) 0.63 mg NEB RTQ2HP PRN PRN Reason: SHORTNESS OF BREATH Stop: 05/31/19 22:47 Lorazepam (Ativan 1 Mg Tablet) 1 mg PO Q12HP PRN PRN Reason: ANXIETY Stop: 05/09/19 11:38 Magnesium Hydroxide (Milk Of Magnesia 30 Ml Udcup) 30 ml PO DAILYP PRN PRN Reason: FOR CONSTIPATION Stop: 05/31/19 22:47 Promethazine HCl (Phenergan Inj 25 Mg/1 Ml Vial) 12.5 mg IV Q4HP PRN PRN Reason: FOR NAUSEA/VOMITING Stop: 05/31/19 22:47 Sodium Chloride (Saline Flush 2.5 Ml Monoject Prefil Syrin) 2.5 ml IV Q8 ALICE Stop: 06/01/19 05:59 Last Admin: 05/02/19 07:24 Dose: Not Given Documented by: Tramadol HCl (Ultram 50 Mg Tablet) 50 mg PO Q12HP PRN PRN Reason: FOR PAIN Stop: 05/09/19 11:38 Zolpidem Tartrate (Ambien 5 Mg Tablet) 10 mg PO HSP PRN PRN Reason: SLEEP OR INSOMNIA Stop: 05/08/19 22:47 Last Admin: 05/01/19 23:44 Dose: 10 mg Documented by: - Allergies Allergies/Adverse Reactions: clonazepam [From Klonopin] Allergy (Verified 05/01/19 17:54) tetracycline [Tetracycline] Allergy (Verified 05/01/19 17:54) Hospital Course Hospital Course: CEDRICK ANDINO is a 49 year old female with no significant past medical history except for depression, anxiety, tobacco abuse, tenting to ED complaining of chest pain for the last 10 days. Complaining of worsening, left-sided, substernal, intermittent, moderate to severe, pressure-like, chest pain radiating to the left upper extremity, worse with exertion, relieved by rest and heavy breathing, increasing in frequency. Denies any history of cocaine abuse, GERD, CAD. Family history is positive on the mother side CAD 68. On admission EKG did not show any acute changes, and troponin was 0.09. Patient was a started on subcutaneous weight-based Lovenox, aspirin, statins and nitroglycerin. Patient continued having exertional chest pain and troponin trending up to 0.21. Given the typical history continuing exertional chest pain and uptrending troponins question of unstable angina/ACS was raised and [facility] was contacted and Dr. Teo Carl graciously accepted the patient to be transferred to [facility] for possible left heart cath and further management. Physical Exam Vital Signs: Temp Pulse Resp BP Pulse Ox 97.3 F 77 17 119/78 98 05/02/19 08:23 05/02/19 08:23 05/02/19 08:23 05/02/19 08:23 05/02/19 08:23 Intake & Output 05/01/19 05/02/19 05/03/19 06:59 06:59 06:59 Weight 90.718 kg 92.6 kg General appearance: PRESENT: no acute distress, obese Respiratory exam: PRESENT: clear to auscultation kristy. ABSENT: rales, rhonchi, wheezes Cardiovascular exam: PRESENT: RRR. ABSENT: diastolic murmur, rubs, systolic murmur GI/Abdominal exam: PRESENT: normal bowel sounds, soft. ABSENT: distended, guarding, mass, organolmegaly, rebound, tenderness Neurological exam: PRESENT: alert, awake, oriented to person, oriented to place, oriented to time, oriented to situation, CN II-XII grossly intact. ABSENT: motor sensory deficit Results Laboratory Results: 05/02/19 02:55 05/02/19 02:55 05/01/19 05/01/19 05/02/19 18:25 18:25 02:55 WBC 12.2 H RBC 4.63 Hgb 13.9 Hct 39.7 MCV 86 MCH 30.0 MCHC 35.0 RDW 13.8 Plt Count 347 Seg Neutrophils % 58.0 Sodium 138.6 137.6 Potassium 4.3 4.0 Chloride 102 103 Carbon Dioxide 26 26 Anion Gap 11 9 BUN 12 12 Creatinine 0.73 0.73 Est GFR ( Amer) > 60 > 60 Glucose 86 117 H Calcium 9.5 8.8 Magnesium 2.3 Total Bilirubin 0.4 AST 16 Alkaline Phosphatase 79 Total Protein 7.1 Albumin 4.2 Triglycerides 665 H Cholesterol 217.03 H LDL Cholesterol Direct 127 H HDL Cholesterol 23 L TSH 05/02/19 05/02/19 02:55 02:55 WBC 10.6 H RBC 4.48 Hgb 13.5 Hct 38.8 MCV 87 MCH 30.1 MCHC 34.8 RDW 13.8 Plt Count 300 Seg Neutrophils % Sodium Potassium Chloride Carbon Dioxide Anion Gap BUN Creatinine Est GFR ( Amer) Glucose Calcium Magnesium Total Bilirubin AST Alkaline Phosphatase Total Protein Albumin Triglycerides Cholesterol LDL Cholesterol Direct HDL Cholesterol TSH 1.27 05/01/19 05/01/19 05/01/19 18:25 20:55 20:55 Creatine Kinase 46 CK-MB (CK-2) Troponin I 0.095 0.111 05/01/19 05/02/19 05/02/19 20:55 02:55 02:55 Creatine Kinase 44 CK-MB (CK-2) 1.40 1.62 Troponin I Cancelled 0.163 05/02/19 05/02/19 09:09 09:09 Creatine Kinase 43 CK-MB (CK-2) 1.33 Troponin I 0.214 Impressions: Chest X-Ray 05/01/19 18:01 IMPRESSION: NO ACUTE RADIOGRAPHIC FINDING IN THE CHEST.
[2019-05-02] MEDS ORDERED: NITROGLYCERIN 0.4 MG/TAB 25 TAB/BOTTLE SL PRN (13:00)
[2019-05-02] MEDS ORDERED: MORPHINE SULFATE 10 MG/ML INJ IV PRN (13:00)
[2019-05-02] MEDS ORDERED: NITROGLYCERIN 0.4 MG/TAB 25 TAB/BOTTLE ONE (13:01)
[2019-05-02] MEDS ORDERED: MORPHINE SULFATE 10 MG/ML INJ ONE (13:02)
[2019-05-02] MEDS ORDERED: NITROGLYCERIN 2% OINTMENT 1 GM PACKET TP SCH (14:00)
[2019-05-02] MEDS ORDERED: ATORVASTATIN CALCIUM 40 MG TABLET PO SCH (22:00)
== END 2019-05-02 14:15 | disposition short-term general hospital (02) ==
LOC: ER 16:50 → EH 23:17 → INTOOBSV 23:17 → 3W 05-02 08:13
PROVIDERS: ADMIT Emergency Medicine; ATTEND Emergency Medicine
DX: I20.0 Unstable angina (principal); E66.9 Obesity, unspecified; Z68.39 Body mass index [BMI] 39.0-39.9, adult; E78.5 Hyperlipidemia, unspecified; R00.2 Palpitations; Z79.899 Other long term (current) drug therapy; Z79.82 Long term (current) use of aspirin; Z82.49 Family history of ischemic heart disease and other diseases of the circulatory system; Z87.891 Personal history of nicotine dependence
CPT/HCPCS: 93005 ×2; 99285; 36415 ×2; 82553 ×2; 82550 ×2; 83735; 84443; 85025; 85027; 80048; 80053; 84484 ×2; 80061; 71046; 93010 ×2; G0378 ×3; J3490 ×11; J1885; J2270; J1650 ×2

== ENCOUNTER 2019-07-03 22:00 | Emergency (ER) | payer MEDICAID ==
--- NOTE | 2019-07-03 23:20 | RADIOLOGY REPORT (SQ) ---
EXAM DESCRIPTION: XR ANKLE 3 OR MORE VIEWS COMPLETED DATE/TME: 07/03/2019 22:40 CLINICAL HISTORY: 49 years, Female, fall, twisted ankle COMPARISON: None. NUMBER OF VIEWS: 3 TECHNIQUE: LIMITATIONS: None. FINDINGS: No acute displaced fracture. Alignment is anatomic. Mild soft tissue swelling. IMPRESSION: No acute bony injury is seen to the ankle. copyright 2010 [employer] All Rights Reserved
[2019-07-04 00:38] VITALS: BP 125/94
--- NOTE | 2019-07-04 00:47 | ER Document Report ---
HPI - HPI Time Seen by Provider: 07/03/19 22:36 Pain Level: 3 Notes: Otherwise healthy 49-year-old female presenting with left ankle pain. Patient reports she tripped and rolled her ankle just prior to arrival. She reports she is able to bear weight on it but wanted to get x-rays to make sure it was not broken. - REPRODUCTIVE Reproductive: DENIES: : Past Medical History - General Information source: Patient - Social History Smoking Status: Current Every Day Smoker Chew tobacco use (# tins/day): No Frequency of alcohol use: None Drug Abuse: None Family History: CAD, Hypertension. denies: DM, Malignancy Patient has suicidal ideation: No Patient has homicidal ideation: No - Past Medical History Cardiac Medical History: Reports: Hx Heart Attack, Hx Hypertension Denies: Hx Atrial Fibrillation, Hx Congestive Heart Failure, Hx Coronary Artery Disease, Hx DVT, Hx Hypercholesterolemia, Hx Pulmonary Embolism Pulmonary Medical History: Denies: Hx Asthma, Hx COPD Neurological Medical History: Denies: Hx Seizures Endocrine Medical History: Denies: Hx Diabetes Mellitus Type 1, Hx Diabetes Mellitus Type 2, Hx Hyperthyroidism, Hx Hypothyroidism Renal/ Medical History: Denies: Hx Peritoneal Dialysis GI Medical History: Denies: Hx Cirrhosis, Hx Hepatitis Musculoskeletal Medical History: Denies Hx Arthritis, Denies Hx Gout Skin Medical History: Denies Hx Eczema, Denies Hx Psoriasis Psychiatric Medical History: Reports: Hx Anxiety, Hx Depression Infectious Medical History: Denies: Hx Hepatitis Past Surgical History: Reports: Hx Cardiac Catheterization, Hx Cholecystectomy, Hx Hysterectomy, Hx Orthopedic Surgery - c-spine:plates & screws, Hx Tonsillectomy - Immunizations Immunizations up to date: Yes Hx Diphtheria, Pertussis, Tetanus Vaccination: Yes Vertical Provider Document - CONSTITUTIONAL Notes: PHYSICAL EXAMINATION: GENERAL: Well-appearing, well-nourished and in no acute distress. HEAD: Atraumatic, normocephalic. EYES: Pupils equal round extraocular movements intact, conjunctiva are normal. ENT: Nares patent NECK: Normal range of motion LUNGS: No respiratory distress Musculoskeletal: Normal range of motion, swelling noted to left lateral ankle, strong dorsalis pedis pulse, no erythema or ecchymosis noted. Cap refill less than 3 seconds, normal motor and sensation distal to injury. NEUROLOGICAL: Normal speech, normal gait. PSYCH: Normal mood, normal affect. SKIN: Warm, Dry, normal turgor, no rashes or lesions noted. - INFECTION CONTROL TRAVEL OUTSIDE OF THE [place] IN LAST 30 DAYS: No Course - Re-evaluation Re-evalutation: X-rays unremarkable, no fracture or dislocation. Patient will be placed in ankle stirrup splint and offered crutches. She has now declined crutches stating that she does not feel she needs them. Patient encouraged to use ankle stirrup splint. She will follow-up with PCM or orthopedics if not improving. - Vital Signs Vital signs: Temp Pulse Resp BP Pulse Ox 97.8 F 115 H 18 125/94 H 98 07/04/19 00:37 07/04/19 00:37 07/04/19 00:37 07/04/19 00:37 07/04/19 00:37 Procedures - Immobilization Left ankle Pre-Proc Neuro Vasc Exam: Normal Immobilizer type: Ankle stirrup Performed by: PCT Post-Proc Neuro Vasc Exam: Normal Discharge - Discharge Clinical Impression: Left ankle sprain Qualifiers: Encounter type: initial encounter Involved ligament of ankle: unspecified ligament Qualified Code(s): S93.402A - Sprain of unspecified ligament of left ankle, initial encounter Condition: Stable Disposition: HOME, SELF-CARE Additional Instructions: Your x-ray does not show any acute fracture. You have a sprained ankle. Keep the area elevated, apply ice 20 minutes every 2 hours, and use crutches as needed. You should take ibuprofen 600 mg every 6 hours as needed for pain. Please return if you have worsening pain and swelling, fever greater than 101, you notice spreading redness from the area, or have any other symptoms that are concerning to you. Please follow-up with orthopedic surgery if your symptoms have not improved in the next 2-3 weeks. Referrals: MALACHI PEREZ MD [Primary Care Provider] - Follow up as needed
== END 2019-07-04 00:57 | disposition home or self-care (01) ==
LOC: ER 22:00
PROC: 2W3RX1Z Immobilization of Left Lower Leg using Splint (ICD-10-PCS; principal; 2019-07-03)
DX: S93.402A Sprain of unspecified ligament of left ankle, initial encounter (principal); M25.572 Pain in left ankle and joints of left foot; X50.1XXA Overexertion from prolonged static or awkward postures, initial encounter; F17.200 Nicotine dependence, unspecified, uncomplicated; I10 Essential (primary) hypertension
CPT/HCPCS: 99283; 73610; 29515; L1902

== ENCOUNTER 2019-11-21 15:03 | Emergency (ER) | payer MEDICAID ==
--- NOTE | 2019-11-21 15:50 | ER Document Report ---
ED Medical Screen (RME) - General Chief Complaint: Back Pain Stated Complaint: BACK PAIN Primary Care Provider: MALACHI PEREZ MD [Primary Care Provider] - Follow up as needed Notes: This 49-year-old female presents to the emergency room today stating she has had lower back pain and multiple other complaints which is been ongoing for several weeks and she has been working at home sitting mostly. She says she has a feeling like restless leg she does have an orthopedic follow-up on she was not interested in a prescription for restless leg syndrome and follow-up with the orthopedic she wanted us to investigate her lower back a little bit further. I greeted and performed a rapid initial assessment of this patient. Comprehensive ED assessment and evaluation of the patient, analysis of test results and completion of the medical decision making process will be conducted by additional ED providers. TRAVEL OUTSIDE OF THE [place] IN LAST 30 DAYS: No - Related Data Allergies/Adverse Reactions: clonazepam [From Klonopin] Allergy (Verified 11/21/19 15:42) tetracycline [Tetracycline] Allergy (Verified 11/21/19 15:42) Past Medical History - Social History Chew tobacco use (# tins/day): No Frequency of alcohol use: None Drug Abuse: None - Past Medical History Cardiac Medical History: Reports: Hx Heart Attack, Hx Hypertension Denies: Hx Atrial Fibrillation, Hx Congestive Heart Failure, Hx Coronary Artery Disease, Hx DVT, Hx Hypercholesterolemia, Hx Pulmonary Embolism Pulmonary Medical History: Denies: Hx Asthma, Hx COPD Neurological Medical History: Denies: Hx Seizures Endocrine Medical History: Denies: Hx Diabetes Mellitus Type 1, Hx Diabetes Mellitus Type 2, Hx Hyperthyroidism, Hx Hypothyroidism Renal/ Medical History: Denies: Hx Peritoneal Dialysis GI Medical History: Denies: Hx Cirrhosis, Hx Hepatitis Musculoskeltal Medical History: Denies Hx Arthritis, Denies Hx Gout Skin Medical History: Denies Hx Eczema, Denies Hx Psoriasis Psychiatric Medical History: Reports: Hx Anxiety, Hx Depression Infectious Medical History: Denies: Hx Hepatitis Past Surgical History: Reports: Hx Cardiac Catheterization, Hx Cholecystectomy, Hx Hysterectomy, Hx Orthopedic Surgery - c-spine:plates & screws, Hx Tonsillectomy - Immunizations Immunizations up to date: Yes Hx Diphtheria, Pertussis, Tetanus Vaccination: Yes Physical Exam - Vital signs Vitals: Temp Pulse Resp BP Pulse Ox 98.4 F 110 H 14 120/82 96 06/06/20 15:12 11/21/19 15:12 11/21/19 15:12 11/21/19 15:12 11/21/19 15:12 Course - Vital Signs Vital signs: Temp Pulse Resp BP Pulse Ox 98.4 F 110 H 14 120/82 96 11/21/19 15:43 11/21/19 15:12 11/21/19 15:12 11/21/19 15:12 11/21/19 15:12 Doctor's Discharge - Discharge Referrals: MALACHI PEREZ MD [Primary Care Provider] - Follow up as needed
[2019-11-21 16:32] LABS: ABSOLUTE BASOPHILS # (AUTO) 0.1 10^3/uL (0.0-0.2); ABSOLUTE EOSINOPHILS # (AUTO) 0.2 10^3/uL (0.0-0.6); ABSOLUTE LYMPHOCYTES (AUTO) 3.4 10^3/uL (0.5-4.7); ABSOLUTE MONOCYTES (AUTO) 0.6 10^3/uL (0.1-1.4); ABSOLUTE NEUT (AUTO) 5.7 10^3/uL (1.7-8.2); BASOPHILS % (AUTO) 0.5 % (0-2); EOSINOPHILS % (AUTO) 2.3 % (0-6); HEMATOCRIT 38.2 % (36.0-47.0); HEMOGLOBIN 13.7 g/dL (12.0-15.5); LYMPHOCYTES % (AUTO) 33.7 % (13-45); MEAN CORPUSCULAR HEMOGLOBIN 31.5 pg (27.0-33.4); MEAN CORPUSCULAR HGB CONC 35.8 g/dL (32.0-36.0); MEAN CORPUSCULAR VOLUME 88 fl (80-97); MONOCYTES % (AUTO) 6.4 % (3-13); PLATELET COUNT 366 10^3/uL (150-450); RED BLOOD COUNT 4.34 10^6/uL (3.72-5.28); RED CELL DISTRIBUTION WIDTH 13.9 % (11.5-14.0); SEGMENTED NEUTROPHILS % (AUTO) 57.1 % (42-78); TOTAL CELLS COUNTED % (AUTO) 100 %; WHITE BLOOD COUNT 10.1 10^3/uL (4.0-10.5)
--- NOTE | 2019-11-21 16:44 | RADIOLOGY REPORT (SQ) ---
EXAM DESCRIPTION: CT LUMBAR SPINE WITHOUT IMAGES COMPLETED DATE/TIME: 11/21/2019 4:22 pm REASON FOR STUDY: pain COMPARISON: None. TECHNIQUE: Axial images acquired through the lumbar spine without intravenous contrast. Images revi ewed with lung, soft tissue and bone windows. Reconstructed coronal and sagittal MPR images reviewed . All images stored on PACS. All CT scanners at this facility use dose modulation, iterative reconstruction, and/or weight based d osing when appropriate to reduce radiation dose to as low as reasonably achievable (ALARA). [facility]: Dose Right [facility]: CareDose [facility]: Dose Right [facility]: Teradose 4D [facility]: [employer] RADIATION DOSE: mGy. LIMITATIONS: None. FINDINGS: SEGMENTATION: Normal. No transitional anatomy. ALIGNMENT: Normal. VERTEBRAL BODIES: No fractures. No dislocation. No acute findings. Small multilevel marginal osteo phytes. DISCS: Mild L4-5 intervertebral disc space narrowing with a broad-based posterior disc protrusion. PEDICLES, TRANSVERSE PROCESSES: No fractures. No dislocation. No acute findings. FACETS, POSTERIOR ELEMENTS: No fractures. No dislocation. No spinal stenosis. Mild to moderate mul tilevel facet arthrosis, greatest at L4-5. Mild to moderate bilateral L4-5 neural foraminal narrowin g. HARDWARE: None in the spine. VISUALIZED RIBS: No fractures. SOFT TISSUES: No significant or acute finding in adjacent soft tissues. OTHER: No other significant finding. IMPRESSION: No acute osseous abnormality of the lumbar spine. Mild to moderate multilevel lumbar spondylosis, greatest at L4-5 with mild to moderate bilateral neur al foraminal narrowing. TECHNICAL DOCUMENTATION: JOB ID: [id number] Quality ID # [id number]: Final reports with documentation of one or more dose reduction techniques (e.g., Au tomated exposure control, adjustment of the mA and/or kV according to patient size, use of iterative reconstruction technique) 2010 [employer]- All Rights Reserved Reading location - IP/workstation name: [email or web address]
[2019-11-21 16:50] LABS: ALBUMIN 4.4 g/dL (3.5-5.0); ALKALINE PHOSPHATASE 90 U/L (38-126); ANION GAP 7 (5-19); ASPARTATE AMINO TRANSFERASE 19 U/L (14-36); BILIRUBIN,TOTAL 0.4 mg/dL (0.2-1.3); BLOOD UREA NITROGEN 14 mg/dL (7-20); CALCIUM 9.1 mg/dL (8.4-10.2); CARBON DIOXIDE 25 mmol/L (22-30); CHLORIDE 105 mmol/L (98-107); GLUCOSE 93 mg/dL (75-110); POTASSIUM 4.5 mmol/L (3.6-5.0); TOTAL PROTEIN 7.3 g/dL (6.3-8.2)
[2019-11-21 16:53] LABS: AMORPHOUS SEDIMENT,URINE TRACE /HPF; APPEARANCE,URINE SLIGHTLY-CLOUDY; BILIRUBIN,URINE NEGATIVE (NEGATIVE); COLOR,URINE YELLOW; GLUCOSE, URINE NEGATIVE (NEGATIVE); KETONES,URINE NEGATIVE (NEGATIVE); LEUKOCYTE ESTERASE,URINE NEGATIVE (NEGATIVE); NITRITE,URINE NEGATIVE (NEGATIVE); PROTEIN,URINE 30 mg/dL (NEGATIVE); URINE SPECIFIC GRAVITY 1.035
[2019-11-21] MEDS ORDERED: NORMAL SALINE 1000 ML 1,000 ML IV ONE (20:57)
[2019-11-21] MEDS ORDERED: KETOROLAC TROMETHAMINE INJ/PF 30 MG/1 ML SDV IV ONE (20:57)
[2019-11-21] MEDS ORDERED: DEXAMETHASONE SOD PHOS INJ 10 MG/1 ML VIAL IV ONE (20:57)
--- NOTE | 2019-11-21 21:01 | ER Document Report ---
ED General - General Chief Complaint: Back Pain Stated Complaint: BACK PAIN Time Seen by Provider: 11/21/19 20:45 Primary Care Provider: ZHEN WINSTON FNP-C [Primary Care Provider] - Follow up as needed Notes: Patient is a 49-year-old female that comes to the emergency department for chief complaint of lower back pain. She states she has experienced this back pain for years but over the past 2 months and especially over the past week or so she has had persistent pain. She denies injury, she has had C-spine surgery but not surgery on her lumbar spine, she states that she also started sleeping on a blowup mattress because of PTSD from a family member dying in the bedroom. She denies fever/chills, inability to urinate, incontinence, numbness except for an occasional shooting pain with some tingling. This can happen randomly in either leg. Patient also adds that she has been sitting on the floor on pillows working on her computer from home. Patient has good follow-up for this established but this was delayed so she came in. She has been placed on hydrocodone for pain by her primary care provider. Past medical history includes CAD, hypertension, hysterectomy, cholecystectomy, and a C-spine surgery. She denies diabetes. She denies recreational drug abuse. TRAVEL OUTSIDE OF THE [place] IN LAST 30 DAYS: No - Related Data Allergies/Adverse Reactions: clonazepam [From Klonopin] Allergy (Verified 11/21/19 15:42) tetracycline [Tetracycline] Allergy (Verified 11/21/19 15:42) Past Medical History - General Information source: Patient - Social History Smoking Status: Current Every Day Smoker Chew tobacco use (# tins/day): No Frequency of alcohol use: None Drug Abuse: None Lives with: Family Family History: CAD, Hypertension. denies: DM, Malignancy Patient has homicidal ideation: No - Past Medical History Cardiac Medical History: Reports: Hx Heart Attack, Hx Hypertension Denies: Hx Atrial Fibrillation, Hx Congestive Heart Failure, Hx Coronary Artery Disease, Hx DVT, Hx Hypercholesterolemia, Hx Pulmonary Embolism Pulmonary Medical History: Denies: Hx Asthma, Hx COPD Neurological Medical History: Denies: Hx Seizures Endocrine Medical History: Denies: Hx Diabetes Mellitus Type 1, Hx Diabetes Mellitus Type 2, Hx Hyperthyroidism, Hx Hypothyroidism Renal/ Medical History: Denies: Hx Peritoneal Dialysis GI Medical History: Denies: Hx Cirrhosis, Hx Hepatitis Musculoskeletal Medical History: Denies Hx Arthritis, Denies Hx Gout Skin Medical History: Denies Hx Eczema, Denies Hx Psoriasis Psychiatric Medical History: Reports: Hx Anxiety, Hx Depression Infectious Medical History: Denies: Hx Hepatitis Past Surgical History: Reports: Hx Cardiac Catheterization, Hx Cholecystectomy, Hx Hysterectomy, Hx Orthopedic Surgery - c-spine:plates & screws, Hx Tonsillectomy - Immunizations Immunizations up to date: Yes Hx Diphtheria, Pertussis, Tetanus Vaccination: Yes Review of Systems - Review of Systems Constitutional: No symptoms reported EENT: No symptoms reported Cardiovascular: No symptoms reported Respiratory: No symptoms reported Gastrointestinal: No symptoms reported Genitourinary: No symptoms reported Female Genitourinary: No symptoms reported Musculoskeletal: See HPI Skin: No symptoms reported Hematologic/Lymphatic: No symptoms reported Neurological/Psychological: No symptoms reported Physical Exam - Vital signs Vitals: Temp Pulse Resp BP Pulse Ox 98.4 F 110 H 14 120/82 96 11/21/19 15:12 11/21/19 15:12 11/21/19 15:12 11/21/19 15:12 11/21/19 15:12 - Notes Notes: GENERAL: Alert, interacts well. No acute distress. HEAD: Normocephalic, atraumatic. EYES: Pupils equal, round, and reactive to light. Extraocular movements intact. ENT: Oral mucosa moist, tongue midline. Oropharynx unremarkable. Airway patent. NECK: Full range of motion. Supple. Trachea midline. No lymphadenopathy. LUNGS: Clear to auscultation bilaterally, no wheezes, rales, or rhonchi. No respiratory distress. Non-tender chest wall. HEART: Patient is not tachycardic on my exam. Normal rhythm. No murmur ABDOMEN: Soft, non-tender. Non-distended. EXTREMITIES: Moves all 4 extremities spontaneously. No edema, normal radial and dorsalis pedis pulses bilaterally. No cyanosis. BACK: There is tenderness along the right and left paralumbar musculature, patient has discomfort with position changes but is able to do so and is able to ambulate. No overt midline tenderness over the spine. No signs of trauma. No saddle anesthesia, normal distal neurovascular exam. Moves all extremities in full range of motion. NEUROLOGICAL: Alert and oriented x3. Normal speech. Cranial nerves II through XII grossly intact. Strength 5/5 in all extremities. PSYCH: Normal affect, normal mood. SKIN: Warm, dry, normal turgor. No rashes or lesions noted. Course - Re-evaluation Re-evalutation: Patient with bilateral paralumbar musculature tenderness with intermittent symptoms suggesting sciatica but she has no straight leg raise abnormalities, no saddle anesthesia, no neurological deficits, and she does not appear to be in distress. She denies IV drug abuse, does not have a fever, does not have leukocytosis. She was initially mildly tachycardic, however she is dehydrated on her work-up. CBC, chemistry unremarkable. Reviewed imaging from triage with CT of the lumbar spine and this shows degenerative changes but no acute findings. I provided patient with copy of this report she will follow-up with her primary for this. Initially I was going to give her Robaxin but patient states she has Flexeril and has had Robaxin in the past and has had no significant improvement. She was given dexamethasone, Toradol, diazepam, and follow-up instructions. Discussed precautions of medication, return precautions specifically, patient states understanding and agreement. Stable and well- appearing at time of discharge. - Vital Signs Vital signs: Temp Pulse Resp BP Pulse Ox 97.9 F 100 18 135/98 H 98 11/21/19 19:27 11/21/19 21:47 11/21/19 21:47 11/21/19 21:47 11/21/19 21:47 - Laboratory Result Diagrams: 11/21/19 16:10 11/21/19 16:10 Laboratory results interpreted by me: 11/21/19 11/21/19 16:10 16:10 Sodium 136.5 L Urine Protein 30 H Urine Blood SMALL H Urine Urobilinogen 2.0 H Discharge - Discharge Clinical Impression: Dehydration Lower back pain Qualifiers: Chronicity: acute Back pain laterality: bilateral Sciatica presence: without sciatica Qualified Code(s): M54.5 - Low back pain Condition: Stable Disposition: HOME, SELF-CARE Additional Instructions: Your CAT scan imaging does show degenerative changes and space narrowing as we discussed. Please follow-up with your primary care provider with the report for additional management. You have been given Decadron here along with rehydration, take the muscle relaxer along with your pain medication, apply heat to your lower back, sleep and sit on much more supporting devices. Return if you worsen including severe worsening pain, vomiting, fever, developing numbness, inability control your bowel or bladder, or any other concerning symptoms. Prescriptions: Diazepam [Valium 5 mg Tablet] 1 - 2 tab PO TID PRN #14 tablet PRN Reason: Forms: Return to Work Referrals: ZHEN WINSTON FNP-C [Primary Care Provider] - Follow up as needed
[2019-11-21 21:48] VITALS: BP 135/98
== END 2019-11-21 21:49 | disposition home or self-care (01) ==
LOC: ER 15:03
DX: E86.0 Dehydration (principal); M54.5 Low back pain; R20.0 Anesthesia of skin; Z88.8 Allergy status to other drugs, medicaments and biological substances; F17.200 Nicotine dependence, unspecified, uncomplicated; I25.2 Old myocardial infarction; I10 Essential (primary) hypertension
CPT/HCPCS: 99284; 96374; 96375; 36415; 85025; 80053; 81001; 72131; J1885; J1100

== ENCOUNTER 2020-01-24 22:17 | Emergency (ER) | payer MEDICAID ==
--- NOTE | 2020-01-24 23:43 | ER Document Report ---
ED Medical Screen (RME) - General Chief Complaint: Chest Pain Stated Complaint: CHEST PAIN Time Seen by Provider: 01/24/20 23:35 Primary Care Provider: ZHEN WINSTON FNP-C [Primary Care Provider] - Follow up as needed Mode of Arrival: Ambulatory Information source: Patient Notes: HPI; 49-year-old female presented to emergency room complaining of intermittent left-sided chest pain that radiates into her left arm for the past 2 weeks. Patient states she had physical therapy 2 weeks ago started having the pain after the physical therapy. She denies any acute trauma or injury. No nausea, no vomiting, no diaphoresis. Took 4 baby aspirin earlier today. PE: Alert and oriented x3. Lungs: Clear to auscultation without rales, rhonchi, wheezes. Heart: Tachycardic without murmurs, rubs, gallops. I have greeted and performed a rapid initial assessment of this patient. A comprehensive ED assessment and evaluation of the patient, analysis of test results and completion of the medical decision making process will be conducted by additional ED providers. I have specifically instructed the patient or family members with the patient to immediately return to any nursing staff should anything change in the patient's condition or with their chief complaint. TRAVEL OUTSIDE OF THE [place] IN LAST 30 DAYS: No - Related Data Allergies/Adverse Reactions: clonazepam [From Klonopin] Allergy (Verified 11/21/19 15:42) tetracycline [Tetracycline] Allergy (Verified 11/21/19 15:42) Past Medical History - Past Medical History Cardiac Medical History: Reports: Hx Heart Attack, Hx Hypertension Denies: Hx Atrial Fibrillation, Hx Congestive Heart Failure, Hx Coronary Artery Disease, Hx DVT, Hx Hypercholesterolemia, Hx Pulmonary Embolism Pulmonary Medical History: Denies: Hx Asthma, Hx COPD Neurological Medical History: Denies: Hx Seizures Endocrine Medical History: Denies: Hx Diabetes Mellitus Type 1, Hx Diabetes Mellitus Type 2, Hx Hyperthyroidism, Hx Hypothyroidism Renal/ Medical History: Denies: Hx Peritoneal Dialysis GI Medical History: Denies: Hx Cirrhosis, Hx Hepatitis Musculoskeltal Medical History: Denies Hx Arthritis, Denies Hx Gout Skin Medical History: Denies Hx Eczema, Denies Hx Psoriasis Psychiatric Medical History: Reports: Hx Anxiety, Hx Depression Infectious Medical History: Denies: Hx Hepatitis Past Surgical History: Reports: Hx Cardiac Catheterization, Hx Cholecystectomy, Hx Hysterectomy, Hx Orthopedic Surgery - c-spine:plates & screws, Hx Tonsillectomy - Immunizations Immunizations up to date: Yes Hx Diphtheria, Pertussis, Tetanus Vaccination: Yes Physical Exam - Vital signs Vitals: Temp Pulse Resp BP Pulse Ox 98.6 F 110 H 18 124/105 H 96 01/24/20 22:46 01/24/20 22:46 01/24/20 22:46 01/24/20 22:46 01/24/20 22:46 Course - Vital Signs Vital signs: Temp Pulse Resp BP Pulse Ox 98.6 F 110 H 18 124/105 H 96 01/24/20 22:46 01/24/20 22:46 01/24/20 22:46 01/24/20 22:46 01/24/20 22:46 Doctor's Discharge - Discharge Referrals: ZHEN WINSTON, [employer]ER-C [Primary Care Provider] - Follow up as needed
[2020-01-25 00:11] LABS: ABSOLUTE BASOPHILS # (AUTO) 0.1 10^3/uL (0.0-0.2); ABSOLUTE EOSINOPHILS # (AUTO) 0.1 10^3/uL (0.0-0.6); ABSOLUTE LYMPHOCYTES (AUTO) 3.1 10^3/uL (0.5-4.7); ABSOLUTE MONOCYTES (AUTO) 0.7 10^3/uL (0.1-1.4); ABSOLUTE NEUT (AUTO) 7.9 10^3/uL (1.7-8.2); HEMATOCRIT 44.7 % (36.0-47.0); HEMOGLOBIN 15.2 g/dL (12.0-15.5); MEAN CORPUSCULAR HEMOGLOBIN 30.3 pg (27.0-33.4); MEAN CORPUSCULAR HGB CONC 34.1 g/dL (32.0-36.0); MEAN CORPUSCULAR VOLUME 89 fl (80-97); MONOCYTES % (AUTO) 5.9 % (3-13); PLATELET COUNT 348 10^3/uL (150-450); RED BLOOD COUNT 5.03 10^6/uL (3.72-5.28); RED CELL DISTRIBUTION WIDTH 13.4 % (11.5-14.0); SEGMENTED NEUTROPHILS % (AUTO) 66.1 % (42-78); TOTAL CELLS COUNTED % (AUTO) 100 %
[2020-01-25 00:25] VITALS: BP 137/106
--- NOTE | 2020-01-25 00:28 | RADIOLOGY REPORT (SQ) ---
EXAM DESCRIPTION: XR CHEST 2 VIEWS COMPLETED DATE/TME: 01/24/2020 23:39 CLINICAL HISTORY: 49 years, Female, chest pain COMPARISON: 1-18 chest NUMBER OF VIEWS: 2 TECHNIQUE: 2 view chest LIMITATIONS: None. FINDINGS: Heart size normal. Lungs clear. No pneumothorax. Postsurgical change of the cervical spine IMPRESSION: No acute cardiopulmonary process copyright 2011 [employer]- All Rights Reserved
[2020-01-25] MEDS ORDERED: DIAZEPAM INJ 10 MG/2 ML DISP.SYRIN IV ONE (00:35)
[2020-01-25] MEDS ORDERED: TRAMADOL HCL 50 MG TABLET PO ONE (00:35)
--- NOTE | 2020-01-25 01:12 | ER Document Report ---
Entered by NEETU MARTINEZ SCRIBE 01/25/20 0037 Acting as scribe for:KENTRELL MCNEIL IV, MD ED General - General Chief Complaint: Chest Pain Stated Complaint: CHEST PAIN Time Seen by Provider: 01/24/20 23:35 Primary Care Provider: ZHEN WISNTON FNP-C [Primary Care Provider] - Follow up as needed Mode of Arrival: Ambulatory Information source: Patient Notes: This 49 year old female patient with a past medical history significant for hypertension, hyperlipidemia, unstable angina, and tobacco abuse presents to the ED today with complaints of intermittent left-sided chest pain that started approximately x2 weeks ago. Patient states that the pain is sharp and shooting in nature that radiates to her left shoulder blade. Pain is exacerbated by deep breaths. Patient notes that initially she thought the pain was related to pulling a muscle during physical therapy x2 weeks ago, but she is now reporting some anxiety regarding a possible IA. Denies shortness of breath or numbness/tingling to her LUE. Denies history of PE or DVT. TRAVEL OUTSIDE OF THE [place] IN LAST 30 DAYS: No - Related Data Allergies/Adverse Reactions: clonazepam [From Klonopin] Allergy (Verified 11/21/19 15:42) tetracycline [Tetracycline] Allergy (Verified 11/21/19 15:42) Home Medications: asa, lisinopril, plavix, metoprolol, cymbalta Past Medical History - General Information source: Patient - Social History Smoking Status: Current Every Day Smoker Cigarette use (# per day): Yes Chew tobacco use (# tins/day): No Smoking Education Provided: No Family History: Reviewed & Not Pertinent, CAD, Hypertension Patient has suicidal ideation: No Patient has homicidal ideation: No - Past Medical History Cardiac Medical History: Reports: Hx Heart Attack, Hx Hypertension Psychiatric Medical History: Reports: Hx Anxiety, Hx Depression Past Surgical History: Reports: Hx Cardiac Catheterization, Hx Cholecystectomy, Hx Hysterectomy, Hx Orthopedic Surgery - c-spine:plates & screws, Hx Tonsillectomy - Immunizations Immunizations up to date: Yes Hx Diphtheria, Pertussis, Tetanus Vaccination: Yes Review of Systems - Review of Systems Constitutional: No symptoms reported EENT: No symptoms reported Cardiovascular: See HPI, Chest pain Respiratory: See HPI. denies: Short of breath Gastrointestinal: No symptoms reported Genitourinary: No symptoms reported Female Genitourinary: No symptoms reported Musculoskeletal: See HPI, Joint pain Skin: No symptoms reported Hematologic/Lymphatic: No symptoms reported Neurological/Psychological: See HPI, Anxiety. denies: Numbness, Tingling -: Yes All other systems reviewed and negative Physical Exam - Vital signs Vitals: Temp Pulse Resp BP Pulse Ox 98.6 F 110 H 18 124/105 H 96 01/24/20 22:46 01/24/20 22:46 01/24/20 22:46 01/24/20 22:46 01/24/20 22:46 - General General appearance: Alert In distress: None - HEENT Head: Normocephalic, Atraumatic Eyes: Normal Pupils: PERRL - Respiratory Respiratory status: No respiratory distress Chest status: Nontender Breath sounds: Normal Chest palpation: Normal - Cardiovascular Rhythm: Regular, Tachycardia Heart sounds: Normal auscultation Murmur: No Friction rub: No Gallop: None auscultated - Abdominal Inspection: Normal Distension: No distension Bowel sounds: Normal Tenderness: Nontender - Abdomen soft Organomegaly: No organomegaly - Back Back: Normal, Nontender, Other - Extremities General upper extremity: Normal inspection, Other - bilateral trapezius spasm General lower extremity: Normal inspection - Neurological Neuro grossly intact: Yes Orientation: AAOx4 Keith Coma Scale Eye Opening: Spontaneous [place] Coma Scale Verbal: Oriented [place] Coma Scale Motor: Obeys Commands Keith Coma Scale Total: 15 - Psychological Associated symptoms: Labile, Tearful - Skin Skin Temperature: Warm Skin Moisture: Dry Skin Color: Normal Course - Re-evaluation Re-evalutation: 01/25/20 05:11 Patient states she is feeling much better at this time. Denies chest pain. Results of ED MSE discussed with patient. All questions were answered prior to discharge. Smoking cessation discussed with patient. Emergency signs and symptoms, reasons to return to the emergency department discussed with patient. - Vital Signs Vital signs: Temp Pulse Resp BP Pulse Ox 98.6 F 110 H 18 137/106 H 94 01/24/20 22:46 01/24/20 22:46 01/25/20 04:00 01/25/20 00:10 01/25/20 01:00 - Laboratory Result Diagrams: 01/24/20 23:55 01/25/20 00:46 Laboratory results interpreted by me: 01/24/20 23:55 WBC 12.0 H - Diagnostic Test Radiology reviewed: Reports reviewed - EKG Interpretation by Me Additional EKG results interpreted by me: 01/25/20 03:00 EKG obtained on 01/24/2020 at 2239 hrs. was interpreted by this MD. Findings: Sinus tachycardia, heart rate 107, normal axis, P waves preceding QRS complexes, QRS complexes appear narrow, there are no obvious patterns of ST segment elevation or depression present to suggest acute myocardial ischemia or infarction. Impression sinus tachycardia with nonspecific ST segments. Discharge - Discharge Clinical Impression: Trapezius muscle spasm, Tobacco abuse, Tobacco abuse counseling Chest pain Qualifiers: Chest pain type: unspecified Qualified Code(s): R07.9 - Chest pain, unspecified Condition: Stable Disposition: HOME, SELF-CARE Instructions: Chest Pain of Unclear Cause ([facility]) Additional Instructions: Return to the Emergency Department without delay if any worse. HOME CARE INSTRUCTIONS & INFORMATION: Thank you for choosing us for your medical needs. We hope you're satisfied with the care you received. After you leave, you must properly care for your problem and, at the same time, observe its progress. Any condition can change. Some illnesses can change rapidly over hours or days. If your condition worsens, return to the Emergency Department or see your physician promptly. ABOUT YOUR X-RAYS AND EKG'S: If you had an EKG or X-rays taken, they have been read by the Emergency Physician. The X-rays and EKG's will also be read by a Radiologist or [facility] Management [facility] within 24 hours. If discrepancies are noted, you will be notified by telephone. Please be certain the ED has a correct telephone number & address where you can be reached. Also, realize that some fractures or abnormalities do not show up on initial X-rays. If your symptoms continue, see your physician. ABOUT YOUR LABORATORY TEST: If you had laboratory tests, the results have been reviewed by the Emergency Physician. Some test results (for example cultures) may not be available for several days. You will be contacted if any test result shows you need additional treatment. Please be certain the ED has a correct telephone number and address where you can be reached. ABOUT YOUR MEDICATIONS: You will receive instructions on how to take your medicine on the prescription label you receive. Additional information may be provided by the Pharmacy. If you have questions afterwards, call the ED for clarification or further instructions. Some prescribed medications may cause drowsiness. Do not perform tasks such as driving a car or operating machinery without consulting your Pharmacist. If you feel you need a refill of pain medication, your condition will need re-evaluation. Please do not call for a refill of any medication. ABOUT YOUR SIGNATURE: Signature of this document acknowledges to followin. Understanding that you received emergency treatment and that you may be released before al medical problems are known or treated. Please be certain the ED has a correct phone number & address where you can be reached. 2. Acknowledgement that you will arrange for follow-up care as recommended. 3. Authorization for the Emergency Physician to provide information to your follow-up Physician in order to maximize your care. AT ANY TIME, IF YOUR SYMPTOMS CHANGE SIGNIFICANTLY OR WORSEN OR YOU DEVELOP NEW SYMPTOMS, RETURN TO THE EMERGENCY DEPARTMENT IMMEDIATELY FOR RE-EVALUATION. OUR GOAL IS TO PROVIDE EXCELLENT MEDICAL CARE! WE HOPE THAT WE HAVE MET YOUR EXPECTATIONS DURING YOUR EMERGENCY DEPARTMENT VISIT AND THAT YOU FEEL YOU HAVE RECEIVED EXCELLENT CARE! Prescriptions: Carisoprodol [Soma 350 Mg Tablet] 350 mg PO QHS PRN #3 tablet PRN Reason: neck muscle tightness Tramadol HCl [Ultram 50 mg Tablet] 50 mg PO QAM #12 tab Forms: Return to Work Referrals: ZHEN WINSTON, POINT OF CARE TECHNICIAN-C [Primary Care Provider] - 01/25/20 I personally performed the services described in the documentation, reviewed and edited the documentation which was dictated to the scribe in my presence, and it accurately records my words and actions.
[2020-01-25 01:42] LABS: CREATINE KINASE MB 0.37 ng/mL (<4.55); TROPONIN I < 0.012 ng/mL
[2020-01-25 02:04] LABS: ALBUMIN 4.3 g/dL (3.5-5.0); ALKALINE PHOSPHATASE 78 U/L (38-126); ANION GAP 8 (5-19); ASPARTATE AMINO TRANSFERASE 20 U/L (14-36); BILIRUBIN,DIRECT 0.1 mg/dL (0.0-0.4); BILIRUBIN,TOTAL 0.5 mg/dL (0.2-1.3); BLOOD UREA NITROGEN 13 mg/dL (7-20); CALCIUM 9.1 mg/dL (8.4-10.2); CARBON DIOXIDE 22 mmol/L (22-30); CHLORIDE 107 mmol/L (98-107); CREATINE KINASE 42 U/L (30-135); GLUCOSE 93 mg/dL (75-110); POTASSIUM 4.5 mmol/L (3.6-5.0); TOTAL PROTEIN 7.2 g/dL (6.3-8.2)
--- NOTE | 2020-01-25 02:48 | RADIOLOGY REPORT (SQ) ---
EXAM DESCRIPTION: CT CHEST ANGIOGRAPHY WITHOUT THEN WITH IV CONTRAST COMPLETED DATE/TME: 01/25/2020 00:36 CLINICAL HISTORY: chest pain and tachycardia COMPARISON: 06/18/2017 TECHNIQUE: CTA of the chest obtained following the uncomplicated intravenous administration of 82 mL Omnipaque 350. 3-D/MIP reformatted images of the chest available for evaluation. FINDINGS: Chest: Pulmonary arteries: Contrast bolus is suboptimal.No filling defects identified in the pulmonary arteries to suggest pulmonary embolus. Suboptimal evaluation of the segmental and subsegmental pulmonary arterial branches due to contrast bolus timing and motion artifact. Thyroid:No abnormalities of the visualized thyroid. Great Vessels:Great vessels have normal anatomic configuration. Thoracic Aorta:No abnormalities of the thoracic aorta identified. No aortic dissection. Heart:No cardiomegaly, significant pericardial effusion, or coronary artery atherosclerosis Lymph Nodes:No enlarged mediastinal lymph nodes identified. Esophagus:No abnormalities of the esophagus identified. Other:No additional findings. Lungs:No airspace opacities identified. Pleura:No pleural effusion or pneumothorax. Trachea/Airways:No abnormalities of the visualized trachea or airways. Bones: Mild multilevel endplate spondylosis visualized spine Partial visualization of cervical fusion. Upper Abdomen:Limited images of the upper abdomen demonstrate no definite abnormalities of visualized portions of the liver, gallbladder, pancreas, spleen, adrenal glands, or kidneys. IMPRESSION: 1. No pulmonary emboli identified. Suboptimal evaluation of the segmental and subsegmental pulmonary arterial branches due to contrast bolus timing and respiratory motion artifact. This exam was performed according to our departmental dose-optimization program, which includes automated exposure control, adjustment of the mA and/or kV according to patient size and/or use of iterative reconstruction technique.
--- NOTE | 2020-01-25 06:37 | EKG REPORT ---
SEVERITY:- OTHERWISE NORMAL ECG - SINUS TACHYCARDIA : Confirmed by: Jerrell Ramirez MD 25-Jan-2020 06:35:27
== END 2020-01-25 05:26 | disposition home or self-care (01) ==
LOC: ER 22:17
DX: R07.9 Chest pain, unspecified (principal); M62.830 Muscle spasm of back; M25.50 Pain in unspecified joint; R00.0 Tachycardia, unspecified; I10 Essential (primary) hypertension; I25.2 Old myocardial infarction; F17.210 Nicotine dependence, cigarettes, uncomplicated; Z71.6 Tobacco abuse counseling; F32.9 Major depressive disorder, single episode, unspecified; F41.9 Anxiety disorder, unspecified; Z79.899 Other long term (current) drug therapy; Z79.82 Long term (current) use of aspirin; Z79.02 Long term (current) use of antithrombotics/antiplatelets; Z82.49 Family history of ischemic heart disease and other diseases of the circulatory system
CPT/HCPCS: 93005; 99285; 96374; 36415; 82553; 82550; 85025; 80053; 84484; 71046; 71275; 93010; J3360